=== PATIENT | male | born 1940 | race Caucasian/White ===

== ENCOUNTER 2018-10-19 00:08 | Day surgery (SDC) | payer MEDICARE ==
[~2018-10-19 00:08] MED LIST: ACET120S PO; ACET325; ACET325 PO; ACET500; ACET500 PO; ACYC200 PO; ALPR.5; ALPR.5 PO; ANALPRAM; ANALPRAM E 2.51 EAC1 PR; ANALPRAM HC 2.530 GM; ANALPRAM HC CREAM; ANALPRAM HC TOP; ASCO500; ASCO500 PO; ATOR10 PO; AZIT250 PO; Acerola C500 MG PO; BIMA.03OPS OD; CELE200; CHOL10002 PO; CIPR500 PO; CLON.5; CLON.5 PO; CLON1; CLON1 PO; CYAN1000 PO; Colace250 MG PO; DOC250 PO; DOCU100 PO; ENOX80I SC; ERGO400 PO; ERYT.5TO; ERYT.5TO BOTHEYES; ERYT.5TO OD; FENT25TP TOP; FENTANYL1 EAC1 TD; FISH1000 PO; FLUC100 PO; GEMF600; GEMF600 PO; HYDR1TAB94 PO; Hair, Skin & N1 EACH PO; Keflex250 MG PO; LATA.005SO BOTHEYES; LAVAP17G PO; LEVO750 PO; LISI10; LISI5 PO; LUMIGAN2.5 ML; LUMIGAN2.5 ML BOTHEYES; METR500 PO; MULVITMIND; MULVITMIND PO; MULVITMINF; MULVITMINF PO; Multi-Day Vita1 EACH PO; OMEP20ER; ONDA8 PO; PANT40 PO; PSYL5.85P; PSYL5.85P PO; RABE20 PO; RANI150; SACC250C PO; SULTRIDS PO; TIMO.5OPG; TIMO.5OPG BOTHEYES; TIMO.5OPSO; TIMO.5OPSO BOTHEYES; TIMO.5OPSO OD; TIMO.5OPSO OU; TRAM50; TRAM50 PO; VITAMIN B-122000 MCG PO; WARF1 PO; WARF3 PO; WARF6; WARF6 PO; WARF7.5 PO
== END 2018-10-19 15:58 | disposition home or self-care (01) ==
LOC: ATC 00:08
DX: D46.9 Myelodysplastic syndrome, unspecified (principal); Z79.01 Long term (current) use of anticoagulants; Z95.2 Presence of prosthetic heart valve; Z87.891 Personal history of nicotine dependence; H40.9 Unspecified glaucoma; F41.8 Other specified anxiety disorders; I10 Essential (primary) hypertension; Z95.0 Presence of cardiac pacemaker; K57.92 Diverticulitis of intestine, part unspecified, without perforation or abscess without bleeding; F43.10 Post-traumatic stress disorder, unspecified; Z79.899 Other long term (current) drug therapy
CPT/HCPCS: 36415; 36430; 86850; 86900; 86901; 86923; J7050; P9016

== ENCOUNTER 2018-12-07 07:41 | Day surgery (SDC) | payer MEDICARE ==
[2018-12-06 13:44] LABS: Hematocrit 23.5 % (37.0-53.0); Hemoglobin 7.3 g/dL (13.5-17.5); Mean Corpuscular HGB 33.8 pg (26.0-34.0); Mean Corpuscular HGB Conc 31.1 g/dL (31.5-36.5); Mean Corpuscular Volume 109 fL (80-100); Mean Platelet Volume 9.8 fL (9.1-12.4); Platelet Count 190 K/mm3 (150-400); RDW Coefficient Variation 17.4 % (11.7-14.2); RDW Standard Deviation 68.7 fL (35.1-46.3); Red Blood Cell Count 2.16 M/mm3 (4.30-5.90); White Blood Cell Count 2.76 K/mm3 (4.00-11.30)
[2018-12-06 14:58] LABS: BAND PERCENT MAN 1 % (0-8); BASOPHILS ABSOLUTE MAN 0.02 K/mm3 (0.00-0.23); BASOPHILS PERCENT MAN 1 % (0-2); EOSINOPHILS ABSOLUTE MAN 0.05 K/mm3 (0.00-0.68); EOSINOPHILS PERCENT MAN 2 % (0-6); LYMPHOCYTES ABSOLUTE MAN 1.43 K/mm3 (0.84-5.20); LYMPHOCYTES PERCENT MAN 52 % (21-46); MONOCYTES ABSOLUTE MAN 0.41 K/mm3 (0.16-1.47); MONOCYTES PERCENT MAN 15 % (4-13); NEUTROPHILS ABSOLUTE MAN 0.82 K/mm3 (1.96-9.15); SEG NEUTROPHILS PERCENT MAN 29 % (41-73); TOTAL CELLS COUNTED 100
[2018-12-07] MEDS ORDERED: TRAM50 PO (15:22)
[2018-12-07] MEDS ORDERED: CELE200 PO (15:23)
[2018-12-07] MEDS ORDERED: GABA600 PO (15:26)
--- NOTE | 2018-12-07 16:02 | NUR ---
PT STATES HE FEELS LIGHT HEADED OR FUZZY. PT RESTING IN CHAIR WATCHING TV. IN ROOM, WILL CONTINUE TO MONITOR.
--- NOTE | 2018-12-07 17:13 | NUR ---
PT STATES HE FEELS BETTER. ASSISTED PT TO STANDING WITH NO C/O. PT DISCHARGED TO CARE OF .
== END 2018-12-07 17:02 | disposition home or self-care (01) ==
LOC: ATC 07:41 → LAB 07:41 → ATC 17:02
PROVIDERS: Internal Medicine Hematology & Oncology
DX: D46.9 Myelodysplastic syndrome, unspecified (principal); I10 Essential (primary) hypertension; F41.9 Anxiety disorder, unspecified; F32.9 Major depressive disorder, single episode, unspecified; Z87.891 Personal history of nicotine dependence; Z79.899 Other long term (current) drug therapy; Z79.01 Long term (current) use of anticoagulants; Z79.02 Long term (current) use of antithrombotics/antiplatelets
CPT/HCPCS: 36415; 36430; 85025; 86850; 86900; 86901; 86923; J7050; P9016

== ENCOUNTER 2019-02-25 19:24 | Inpatient (IN) | payer MEDICARE ==
[~2019-02-25] VITALS: Ht 190.5 cm; Wt 96.8 kg
[~2019-02-25 19:24] MED LIST changes: -ANALPRAM HC TOP; -ATOR10 PO; -Colace250 MG PO; -Multi-Day Vita1 EACH PO
[2019-02-25 20:08] LABS: Hematocrit 22.7 % (37.0-53.0); Hemoglobin 7.2 g/dL (13.5-17.5); Mean Corpuscular HGB 32.6 pg (26.0-34.0); Mean Corpuscular HGB Conc 31.7 g/dL (31.5-36.5); Mean Platelet Volume 10.3 fL (9.1-12.4); NRBC ABSOLUTE 0.11 K/mm3 (0.00-0.02); NRBC Auto 2.7 /100 WBC (0.0-0.2); Platelet Count 182 K/mm3 (150-400); RDW Coefficient Variation 21.5 % (11.7-14.2); RDW Standard Deviation 78.2 fL (35.1-46.3); Red Blood Cell Count 2.21 M/mm3 (4.30-5.90); White Blood Cell Count 4.13 K/mm3 (4.00-11.30)
[2019-02-25 20:09] LABS: Mean Corpuscular Volume 103 fL (80-100)
[2019-02-25 20:22] LABS: International Normalized Ratio 2.97; Prothrombin Time Results 28.5 Sec (9.7-11.5)
[2019-02-25 20:30] LABS: Alanine Aminotransfer (ALT/SGP 29 U/L (12-78); Albumin, Blood 3.5 g/dL (3.4-5.0); Albumin/Globulin Ratio 0.8 (0.8-1.8); Alk Phos 88 U/L (50-136); Anion Gap 5 mmol/L (6-16); Aspartate Aminotrans (AST/SGOT 26 U/L (12-37); Bilirubin, Total 2.9 mg/dL (0.1-1.0); Blood Urea Nitrogen 20 mg/dL (8-24); Bun/Creatinine Ratio 19.4 (12.0-20.0); CO2, Blood 25 mmol/L (21-32); Calcium, Blood 8.7 mg/dL (8.5-10.1); Chloride, Blood 107 mmol/L (98-108); Creatinine, Blood 1.03 mg/dL (0.60-1.20); Globulin, Blood 4.2 g/dL (2.2-4.0); Glomerular Filtration Rate >60 (60-); Glucose, Blood 200 mg/dL (70-99); Sodium, Blood 137 mmol/L (136-145); Total Protein, Blood 7.7 g/dL (6.4-8.2)
[2019-02-25 20:44] LABS: BASOPHILS ABSOLUTE MAN 0.08 K/mm3 (0.00-0.23); BASOPHILS PERCENT MAN 2 % (0-2); EOSINOPHILS PERCENT MAN 0 % (0-6); LYMPHOCYTES ABSOLUTE MAN 1.89 K/mm3 (0.84-5.20); LYMPHOCYTES PERCENT MAN 46 % (21-46); MONOCYTES ABSOLUTE MAN 0.45 K/mm3 (0.16-1.47); MONOCYTES PERCENT MAN 11 % (4-13); NEUTROPHILS ABSOLUTE MAN 1.69 K/mm3 (1.96-9.15); SEG NEUTROPHILS PERCENT MAN 41 % (41-73); TOTAL CELLS COUNTED 100
[2019-02-25] MEDS ORDERED: PANT40 PO (21:37)
[2019-02-25] MEDS ORDERED: TIMO.5OPSO BOTHEYES (21:38)
[2019-02-25] MEDS ORDERED: ATOR10 PO (21:38)
[2019-02-25] MEDS ORDERED: LATA.005SO BOTHEYES (21:38)
[2019-02-25] MEDS ORDERED: GABA600 PO (21:39)
[2019-02-25] MEDS ORDERED: CLON1 PO (21:40)
[2019-02-25] MEDS ORDERED: CELE200 PO (21:41)
[2019-02-25] MEDS ORDERED: WARF5 PO (21:42)
[2019-02-25] MEDS ORDERED: TRAM50 PO (22:00)
[2019-02-25] MEDS ORDERED: ACET500 PO (22:02)
[2019-02-25] MEDS ORDERED: ASCO500 PO (22:02)
[2019-02-25] MEDS ORDERED: THERA1 EACH PO (22:03)
[2019-02-25] MEDS ORDERED: CHOL10002 PO (22:05)
[2019-02-25] MEDS ORDERED: METAMUCIL660 GM PO (22:05)
[2019-02-25] MEDS ORDERED: Colace250 MG PO (22:05)
[2019-02-25] MEDS ORDERED: Erythromycin BOTHEYES (22:08)
[2019-02-25] MEDS ORDERED: LISI5 PO (22:09)
[2019-02-25] MEDS ORDERED: ANALPRAM HC 2.5%4 GM TOP (22:09)
--- NOTE | 2019-02-26 06:25 | NUR ---
SHIFT SUMMARY PT WAS A NEW ADMIT DURING THE NIGHT, ARRIVING ON THE FLOOR AT 2240. HE IS A&O X 2, THOUGH VERY SPACEY AND "OUT OF IT" PER IS , WHICH IS NOT HIS NORMAL BASELINE. THE PT REPORTED FEELING VERY SHORT OF BREATH DURING THE NIGHT, THOUGH IS SATS REMAINED AT 95-97% ON 3L OF O2 VIA NC. HE ALSO HAD A TEMPERATURE OF 100.8 DURING AM VITALS, WHICH CAME DOWN TO 99.7 WITH PO TYLENOL. HIS HEART RATE WAS ELEVATED IN THE 110S THROUGH THE NIGHT. ALL OTHER VITALS STABLE. HE REPORTED CHRONIC R SIDE/CHEST PAIN, WHICH PER THE PT IS NOT WELL CONTROLLED ON HIS HOME DOSE OF TRAMADOL AND GABAPENTIN. NO COMPLAINTS OF NAUSEA. NO OTHER ACUTE CHANGES IN PT CONDITION NOTED. WILL CONTINUE TO MONITOR AND TREAT PER EMAR UNTIL HAND OFF TO DAY SHIFT.
[2019-02-26 09:32] LABS: International Normalized Ratio 3.29; Prothrombin Time Results 31.3 Sec (9.7-11.5)
[2019-02-26 12:10] LABS: Hematocrit 19.1 % (37.0-53.0); Mean Corpuscular HGB 32.3 pg (26.0-34.0); Mean Corpuscular HGB Conc 31.4 g/dL (31.5-36.5); Mean Corpuscular Volume 103 fL (80-100); Mean Platelet Volume 10.8 fL (9.1-12.4); NRBC ABSOLUTE 0.12 K/mm3 (0.00-0.02); NRBC Auto 2.8 /100 WBC (0.0-0.2); Platelet Count 151 K/mm3 (150-400); RDW Coefficient Variation 21.6 % (11.7-14.2); RDW Standard Deviation 78.8 fL (35.1-46.3); Red Blood Cell Count 1.86 M/mm3 (4.30-5.90); White Blood Cell Count 4.26 K/mm3 (4.00-11.30)
[2019-02-26 12:28] LABS: Albumin, Blood 3.1 g/dL (3.4-5.0); Albumin/Globulin Ratio 0.8 (0.8-1.8); Bilirubin, Total 1.5 mg/dL (0.1-1.0); Bun/Creatinine Ratio 19.1 (12.0-20.0); Creatinine, Blood 1.31 mg/dL (0.60-1.20); Globulin, Blood 3.8 g/dL (2.2-4.0); Total Protein, Blood 6.9 g/dL (6.4-8.2)
[2019-02-26 12:43] LABS: BASOPHILS PERCENT MAN 0 % (0-2); EOSINOPHILS PERCENT MAN 0 % (0-6); LYMPHOCYTES ABSOLUTE MAN 1.95 K/mm3 (0.84-5.20); LYMPHOCYTES PERCENT MAN 46 % (21-46); METAMYELOCYTE ABSOLUTE MAN 0.12 K/mm3 (0.00-0.00); METAMYELOCYTE PERCENT MAN 3 % (0-0); MONOCYTES ABSOLUTE MAN 1.06 K/mm3 (0.16-1.47); MONOCYTES PERCENT MAN 25 % (4-13); SEG NEUTROPHILS PERCENT MAN 26 % (41-73); TOTAL CELLS COUNTED 100
--- NOTE | 2019-02-26 15:13 | NUR ---
DR AMEZCUA NOTIFIED OF HGB OF 6.0. DR AMEZCUA REPORTS SHE WILL LOOK THROUGH PATIENTS CHART AND PLACE ORDERS IF NEEDED.
--- NOTE | 2019-02-26 16:46 | NUR ---
PT IS A/OX3, PLEASANT AND COOPERATIVE, THE PT IS UP WITH ASSIST TO THE BATHROOM, THE PT APPEARS TO BE BREATHING EASILY ON O2 @ 3L/MIN AT THIS TIME, THE PT HAS BEEN BED REST T/O THE DAY, PTS HGB 6.0, PT IS AT THE BEDSIDE, ORDER TO TRANSFUSE 1 UNIT OF BLOOD WAS ENTERED, CALL LIGHT IN REACH WILL CONTINUE TO MONITOR AND ASSESS FOR CHANGES
--- NOTE | 2019-02-26 18:40 | NUR ---
STARTED UNIT OF PRBC'S PT TOLERATING WELL AT THIS TIME
[2019-02-27 05:52] LABS: Hematocrit 20.5 % (37.0-53.0); Hemoglobin 6.7 g/dL (13.5-17.5); Mean Corpuscular HGB 31.9 pg (26.0-34.0); Mean Corpuscular HGB Conc 32.7 g/dL (31.5-36.5); Mean Platelet Volume 10.5 fL (9.1-12.4); NRBC Auto 3.6 /100 WBC (0.0-0.2); Platelet Count 142 K/mm3 (150-400); RDW Standard Deviation 73.4 fL (35.1-46.3); White Blood Cell Count 2.79 K/mm3 (4.00-11.30)
[2019-02-27 05:53] LABS: Mean Corpuscular Volume 98 fL (80-100)
[2019-02-27 06:00] LABS: International Normalized Ratio 3.31; Prothrombin Time Results 31.5 Sec (9.7-11.5)
[2019-02-27 06:01] LABS: Bun/Creatinine Ratio 20.3 (12.0-20.0); Calcium, Blood 8.1 mg/dL (8.5-10.1); Creatinine, Blood 1.33 mg/dL (0.60-1.20)
--- NOTE | 2019-02-27 06:06 | NUR ---
SHIFT SUMMARY PATIENT IS ALERT AND ORIENTED. ON 1L NASAL CANNULA. PATIENT RECIEVED 1 UNIT OF BLOOD. PT HAS HAD A LOW GRADE FEVER THROUGHOUT THE NIGHT. ALTERNATING BETWEEN TYLENOL AND IBUPROFEN PER DR. AMEZCUA. PATIENTS HBG THIS AM IS 6.7, CALLED DR. AMEZCUA AND NOTIFIED HER OF THE HGB AND CURRENT TEMP. NO NEW ORDERS AT THIS TIME. PATIENT SLEPT OFF AND ON THROUGHOUT THE NIGHT. NO OTHER CHANGES NOTED. VITALS STABLE.
[2019-02-27 06:20] LABS: BAND PERCENT MAN 1 % (0-8); BASOPHILS ABSOLUTE MAN 0.02 K/mm3 (0.00-0.23); BASOPHILS PERCENT MAN 1 % (0-2); EOSINOPHILS PERCENT MAN 0 % (0-6); LYMPHOCYTES ABSOLUTE MAN 0.94 K/mm3 (0.84-5.20); LYMPHOCYTES PERCENT MAN 34 % (21-46); MONOCYTES ABSOLUTE MAN 0.89 K/mm3 (0.16-1.47); MONOCYTES PERCENT MAN 32 % (4-13); MYELOCYTE ABSOLUTE MAN 0.05 K/mm3 (0.00-0.00); MYELOCYTE PERCENT MAN 2 % (0-0); NEUTROPHILS ABSOLUTE MAN 0.86 K/mm3 (1.96-9.15); SEG NEUTROPHILS PERCENT MAN 30 % (41-73); TOTAL CELLS COUNTED 100
--- NOTE | 2019-02-27 11:30 | NUR ---
TRANSFUSION STARTED 1 UNIT PRBC'S, VS WNL, PT TOLERATING WELL AT THIS TIME
--- NOTE | 2019-02-27 17:56 | NUR ---
PT IS A/OX3, PLEASANT AND COOPERATIVE, THE PT APPEARS TO BE BREATHING EASILY ON O2 @ 1L/MIN AT THIS TIME, THE PT WAS TRIED ON RA FOR SEVERAL HOURS HOWEVER HIS O2 SATS DROPPED TO 88% and o2 was reapplied at 1L/min, the pt was up to shower today and back to bed per his request, he declined to ambulate in the covarrubias this evening, 1 unit of blood was administered and the pt tolerated the transfusion well, the pts was at the bedside t/o the day, call light in reach will continue to monitor and assess for changes
[2019-02-27 20:01] LABS: Hematocrit 23.3 % (37.0-53.0); Hemoglobin 7.5 g/dL (13.5-17.5)
--- NOTE | 2019-02-27 21:55 | NUR ---
MANUEL ACE ALERTED OF TRENDING UPWARD HGB/HCT NOW 7.5/23.3 (PREVIOUSLY 6.7/20.5) POST TRANSFUSION OF 1UNIT PRBC'S RECIEVED ON DAY SHIFT. NO NEW ORDERS RECEIVED AT THIS TIME.
--- NOTE | 2019-02-28 03:36 | NUR ---
SUMMARY: PT A/OX3, SPECIFIES NEEDS AND CALLS APPROPRIATELY. HE CONT'S TO GET SOB W/EXERTION BUT RECOVERS AT REST. SPO2 WNL ON 1L O2 VIA NC, RESPS E/U. HE USES URINAL IN BED BUT IS SBA OOB OTHERWISE. PT DENIED NEEDING PRN MEDS THIS SHIFT. HGB/HCT WERE IMPROVED TONIGHT FOLLOWING TRANSFUSION RECIEVED ON DAY SHIFT. VSS/AFEBRILE AND PT HAS BEEN W/O A FEVER SINCE 1120 ON 02/27/19 SO D/C MAY BE POSSIBLE TODAY. NO ACUTE CHANGES. WCTM AND REPORT TO DAY RN.
[2019-02-28 04:43] LABS: Hematocrit 24.6 % (37.0-53.0); Hemoglobin 7.8 g/dL (13.5-17.5); Mean Corpuscular HGB 31.8 pg (26.0-34.0); Mean Corpuscular HGB Conc 31.7 g/dL (31.5-36.5); Mean Corpuscular Volume 100 fL (80-100); Mean Platelet Volume 10.5 fL (9.1-12.4); NRBC ABSOLUTE 0.07 K/mm3 (0.00-0.02); NRBC Auto 3.4 /100 WBC (0.0-0.2); Platelet Count 133 K/mm3 (150-400); RDW Coefficient Variation 20.6 % (11.7-14.2); RDW Standard Deviation 72.6 fL (35.1-46.3); Red Blood Cell Count 2.45 M/mm3 (4.30-5.90); White Blood Cell Count 2.06 K/mm3 (4.00-11.30)
[2019-02-28 04:55] LABS: International Normalized Ratio 2.63; Prothrombin Time Results 25.5 Sec (9.7-11.5)
[2019-02-28 04:57] LABS: Anion Gap 5 mmol/L (6-16); Blood Urea Nitrogen 26 mg/dL (8-24); Bun/Creatinine Ratio 22.8 (12.0-20.0); CO2, Blood 25 mmol/L (21-32); Calcium, Blood 8.1 mg/dL (8.5-10.1); Chloride, Blood 108 mmol/L (98-108); Creatinine, Blood 1.14 mg/dL (0.60-1.20); Glomerular Filtration Rate >60 (60-); Glucose, Blood 130 mg/dL (70-99); Potassium, Blood 4.3 mmol/L (3.5-5.5); Sodium, Blood 138 mmol/L (136-145)
[2019-02-28 05:03] LABS: BAND PERCENT MAN 4 % (0-8); BASOPHILS ABSOLUTE MAN 0.04 K/mm3 (0.00-0.23); BASOPHILS PERCENT MAN 2 % (0-2); EOSINOPHILS PERCENT MAN 5 % (0-6); LYMPHOCYTES ABSOLUTE MAN 0.82 K/mm3 (0.84-5.20); LYMPHOCYTES PERCENT MAN 40 % (21-46); MONOCYTES ABSOLUTE MAN 0.26 K/mm3 (0.16-1.47); MONOCYTES PERCENT MAN 13 % (4-13); NEUTROPHILS ABSOLUTE MAN 0.82 K/mm3 (1.96-9.15); SEG NEUTROPHILS PERCENT MAN 36 % (41-73); TOTAL CELLS COUNTED 100
--- NOTE | 2019-02-28 08:54 | NUR ---
Echocardiogram completed.
--- NOTE | 2019-02-28 17:21 | NUR ---
SHIFT SUMMARY PT SLEEPING, RESTING QUIETLY DURING SHIFT REPORT. WOKE EASILY FOR CARE. PT'S IN TO SEE PT EARLY, BRINGING PT BREAKFAST. PT DECLINED MOST OF HOSPITAL FOOD, BUT ATE PACKAGED BROUGHT IN. PT WAS OFFERED ASSISTANCE TO FILL OUT MENU FOR LUNCH BUT REFUSED; JUST COMPLAINED ABOUT WHAT WAS BROUGHT. PT OOB TO BTHRM USING FWW; 1P ASSIST. ADMITTED FOR CAP WITH HX OF MYELODYSPLASTIC SYNDROME, CHF, PACER AND AORITIC VALVE. PT DOWN TO IMAGING RIGHT AFTER START OF SHIFT FOR CXR. PT LATER HAD ECHO IN RM. 1 UNIT PRBC'S GIVEN TODAY WELL; CHRONIC LOW ANEMIA. PT C/O NOT HAVING BM FOR A COUPLE OF DAYS, "BUT I HAVEN'T EATEN THAT MUCH EITHER"; PRUNE JUICE GIVEN WITH NO EFFECT. DR FERRELL IN TO SEE PT TONIGHT. NEW ORDERS FOR BOWEL CARE TO BE GIVEN. ABD SLIGHTLY DISTENDED. LUNGS T/O WITH SCATTERED WHEEZES. PT ON .5L O2 AT START OF SHIFT. ABLE TO TOLERATE RA WHEN UP TO BTHRM AND LATER IN BED. PER PT HE DOES NOT USE O2 AT HOME. PT VERY ITTITABLE AT TIMES. MEDICATED FOR C/O PAIN THIS AM; R RIBS. REPORTED PULLED MUSCLES YEARS AGO; NOTHING RECENT. CALL LT IN REACH.
--- NOTE | 2019-03-01 04:47 | NUR ---
SUMMARY: A/O, SPECIFIES NEEDS AND HAS BEEN USING URINAL INDEPENDENTLY WHILE IN BED. HE STILL BECOMES SOB W/EXERTION BUT HAS TOLERATED RA W/RESPS E/U. HE ADMITS TO BEING "TIRED OF BEING IN HOSPITAL" AND SAID HE'S "SORRY IF HE'S BEEN IRRITABLE". PT HAS BEEN W/O FEVERS FOR >24HRS SO D/C IS POSSIBLE TODAY. HE RECIEVED TRAMADOL X2 DOSES FOR RELIEF OF R.SIDE/RIB PAIN AND DENIED COMPLAINTS OTHERWISE. HE HAD A LARGE HARD BM THIS SHIFT FOLLOWING BOWEL MEDS RECIEVED ON DAY SHIFT. CHRONIC ANEMIA RELATED TO MYELODYSPLASTIC SYNDROME PERSISTS, AWAITING AM LABS. NO ACUTE CHANGES, VSS/AFEBRILE. WCTM AND REPORT TO DAY RN.
[2019-03-01 05:30] LABS: International Normalized Ratio 2.07; Prothrombin Time Results 20.5 Sec (9.7-11.5)
[2019-03-01 05:39] LABS: BASOPHILS ABSOLUTE AUTO 0.03 K/mm3 (0.00-0.23); BASOPHILS PERCENT AUTO 2 % (0-2); EOSINOPHILS ABSOLUTE AUTO 0.03 K/mm3 (0.00-0.68); EOSINOPHILS PERCENT AUTO 2 % (0-6); Hematocrit 26.4 % (37.0-53.0); Hemoglobin 8.4 g/dL (13.5-17.5); IMMATURE GRAN ABSOLUTE AUTO 0.02 K/mm3 (0.00-0.10); IMMATURE GRAN PERCENT AUTO 1 % (0-1); LYMPHOCYTES ABSOLUTE AUTO 0.87 K/mm3 (0.84-5.20); LYMPHOCYTES PERCENT AUTO 51 % (21-46); MONOCYTES ABSOLUTE AUTO 0.38 K/mm3 (0.16-1.47); MONOCYTES PERCENT AUTO 22 % (4-13); Mean Corpuscular HGB 31.3 pg (26.0-34.0); Mean Corpuscular HGB Conc 31.8 g/dL (31.5-36.5); Mean Corpuscular Volume 99 fL (80-100); Mean Platelet Volume 10.8 fL (9.1-12.4); NEUTROPHILS ABSOLUTE AUTO 0.37 K/mm3 (1.96-9.15); NEUTROPHILS PERCENT AUTO 22 % (41-73); NRBC ABSOLUTE 0.07 K/mm3 (0.00-0.02); NRBC Auto 4.1 /100 WBC (0.0-0.2); Platelet Count 131 K/mm3 (150-400); RDW Coefficient Variation 19.9 % (11.7-14.2); RDW Standard Deviation 69.9 fL (35.1-46.3); Red Blood Cell Count 2.68 M/mm3 (4.30-5.90)
--- NOTE | 2019-03-01 05:47 | NUR ---
HGB/HCT IMPROVING, NOW 8.4/26.4, WAS 7.9/26.4.
[2019-03-01 05:50] LABS: Anion Gap 7 mmol/L (6-16); Blood Urea Nitrogen 19 mg/dL (8-24); Bun/Creatinine Ratio 19.7 (12.0-20.0); CO2, Blood 22 mmol/L (21-32); Calcium, Blood 8.3 mg/dL (8.5-10.1); Chloride, Blood 109 mmol/L (98-108); Creatinine, Blood 0.97 mg/dL (0.60-1.20); Glomerular Filtration Rate >60 (60-); Glucose, Blood 122 mg/dL (70-99); Potassium, Blood 4.1 mmol/L (3.5-5.5); Sodium, Blood 138 mmol/L (136-145)
[2019-03-01] MEDS ORDERED: AZIT500 PO (08:22)
[2019-03-01] MEDS ORDERED: CEFP200 PO (08:23)
--- NOTE | 2019-03-01 12:52 | NUR ---
SHIFT SUMMARY PT AWAKE, WATCHING TV, DURING SHIFT REPORT. D/C ORDERS ON CHART. PT TO RECEIVE IV ABX PRIOR TO D/C. PHARMACY NOTIFIED OF DR FERRELL'S ORDERS; ABX SENT AND ADMINISTERED. PT ABLE TO GET UP P/T TODAY AND WALKED HALLS, WHILE WAITING FOR PHARMACY TO SEND ABX. LUNGS T/O IMPROVED TODAY; ONLY FINE SCATTERED EXP WHEEZES. PT'S BIOX REMAINED WNL'S ON RA, WELL REMAINING AFEBRILE. MOOD IMPROVED TODAY FROM THE START OF SHIFT. PT SEEMED ENCOURAGED TO BE ABLE TO GO HOME. NO C/O PAIN TODAY. IV D/C'D WNL WHEN ABX COMPLETE. D/C INSTRUCTIONS REVIEWED WITH PT AND AGAIN WITH . PT TO F/U WITH DR FERRELL ON AND OBTAIN INR PRIOR TO VISIT. PT AND VERBALIZED UNDERSTANDING. PT TAKEN VIA W/C TO CAR; WAITING.
== END 2019-03-01 12:49 | disposition home health service (06) | DRG 871 ==
LOC: ER 19:24 → MEDS 19:25 → ENPENDDIS 03-01 08:30 → MEDS 03-01 12:49
PROVIDERS: Emergency Medicine; Internal Medicine; Pharmacist; ADMIT Family Medicine
PROC: 30233N1 Transfusion of Nonautologous Red Blood Cells into Peripheral Vein, Percutaneous Approach (ICD-10-PCS; principal; 2019-02-26)
DX: A41.9 Sepsis, unspecified organism (principal); J18.9 Pneumonia, unspecified organism; I50.40 Unspecified combined systolic (congestive) and diastolic (congestive) heart failure; Z79.01 Long term (current) use of anticoagulants; H40.9 Unspecified glaucoma; Z90.81 Acquired absence of spleen; Z95.2 Presence of prosthetic heart valve; Z95.0 Presence of cardiac pacemaker; F41.9 Anxiety disorder, unspecified; R07.89 Other chest pain; G89.29 Other chronic pain; I11.0 Hypertensive heart disease with heart failure; D63.8 Anemia in other chronic diseases classified elsewhere; D46.9 Myelodysplastic syndrome, unspecified; Z87.891 Personal history of nicotine dependence; R09.02 Hypoxemia
CPT/HCPCS: 36415; 36430; 71045; 71046; 80048; 80053; 83605; 85007; 85014; 85018; 85025; 85027; 85610; 85730; 86850; 86900; 86901; 86923; 87040; 93306; 94762; 96365; 96367; 97116; 97162; 97530; 99285-25; A9270; G0378; J0456; J0696; J7030; J7050; P9016

== ENCOUNTER → 2019-03-08 | Outpatient (CLI) | payer MEDICARE ==
[~2019-03-08] MED LIST changes: +ANALPRAM HC 2.5%4 GM TOP; +ATOR10 PO; +AZIT500 PO; +CEFP200 PO; +CELE200 PO; +Colace250 MG PO; +Erythromycin BOTHEYES; +GABA600 PO; +LORCET 5-325 M1 EACH PO; +METAMUCIL660 GM PO; +THERA1 EACH PO; +WARF5 PO
== END | disposition home or self-care (01) ==
LOC: LAB SHORT 18:31 → LAB 18:31
DX: L03.90 Cellulitis, unspecified (principal)
CPT/HCPCS: 87070; 87205

== ENCOUNTER 2019-03-31 12:10 | Day surgery (SDC) | payer MEDICARE ==
[~2019-03-31 12:10] MED LIST changes: -LORCET 5-325 M1 EACH PO
== END 2019-03-31 16:20 | disposition home or self-care (01) ==
LOC: ATC 12:10
DX: D46.9 Myelodysplastic syndrome, unspecified (principal); I10 Essential (primary) hypertension; Z87.891 Personal history of nicotine dependence; Z79.899 Other long term (current) drug therapy; Z79.01 Long term (current) use of anticoagulants
CPT/HCPCS: 36430; 86850; 86900; 86901; 86923; J7050; P9016

== ENCOUNTER 2019-04-27 14:55 | Day surgery (SDC) | payer MEDICARE ==
[2019-04-25 14:41] LABS: Hematocrit 21.4 % (37.0-53.0); Hemoglobin 6.7 g/dL (13.5-17.5); Mean Corpuscular HGB 31.3 pg (26.0-34.0); Mean Corpuscular HGB Conc 31.3 g/dL (31.5-36.5); Mean Corpuscular Volume 100 fL (80-100); Mean Platelet Volume 10.7 fL (9.1-12.4); NRBC ABSOLUTE 0.04 K/mm3 (0.00-0.02); NRBC Auto 1.8 /100 WBC (0.0-0.2); Platelet Count 222 K/mm3 (150-400); RDW Coefficient Variation 19.2 % (11.7-14.2); RDW Standard Deviation 66.2 fL (35.1-46.3); Red Blood Cell Count 2.14 M/mm3 (4.30-5.90); White Blood Cell Count 2.18 K/mm3 (4.00-11.30)
[2019-04-25 15:07] LABS: BAND PERCENT MAN 2 % (0-8); BASOPHILS ABSOLUTE MAN 0.04 K/mm3 (0.00-0.23); BASOPHILS PERCENT MAN 2 % (0-2); EOSINOPHILS PERCENT MAN 0 % (0-6); LYMPHOCYTES ABSOLUTE MAN 1.56 K/mm3 (0.84-5.20); LYMPHOCYTES PERCENT MAN 72 % (21-46); MONOCYTES PERCENT MAN 14 % (4-13); NEUTROPHILS ABSOLUTE MAN 0.26 K/mm3 (1.96-9.15); SEG NEUTROPHILS PERCENT MAN 10 % (41-73); TOTAL CELLS COUNTED 100
--- NOTE | 2019-04-27 15:41 | NUR ---
1500 ARRIVED ARRIVED VIA WHEELCHAIR ACCOMPANIED BY FAMILY
[2019-04-27 15:49] LABS: Hematocrit 19.5 % (37.0-53.0); Hemoglobin 6.1 g/dL (13.5-17.5)
--- NOTE | 2019-04-27 18:04 | NUR ---
1800 transfusion first unit of blood initiated. patient and family unhappy that transfusion is taking longer than anticipated to be started. discussed with patient that as he had removed his blood band prior to admission today that his blood needed to be typed and crossed. discussed with patient that his transfusion will be completed as quickly as possible that is safe for him to receive
--- NOTE | 2019-04-27 18:27 | NUR ---
PATIENTS VISITOR TELLS ME THAT PATIENT JUST TOOK 2 TYLENOL AND A TRAMADOL THAT HE HAD IN HIS POCKET. VISITOR TELLS ME PATIENT DOES KNOW HE IS NOT TO BE TAKING OWN MEDS
--- NOTE | 2019-04-27 19:28 | NUR ---
ASSUMED CARE OF PATIENT. PT RECEIVING 1ST UNIT OF PRBC'S NO SIGNS OF TRANSFUSION REACTION. NO COMPLAINTS FROM PATIENT. NO NEEDS AT THIS TIME.
--- NOTE | 2019-04-27 20:27 | NUR ---
2ND UNIT STARTED. WILL MONITOR CLOSELY FOR REACTION. SPOUSE AT BEDSIDE.
--- NOTE | 2019-04-27 22:52 | NUR ---
2ND UNIT COMPLETED. VSS, LS CLEAR. IV DC'D CATH INTACT. PT DC'D HOME WITH SPOUSE, BELONGINGS WITH PT.
== END 2019-04-27 22:53 | disposition home or self-care (01) ==
LOC: ATC 14:55 → SURS 14:55 → ATC 22:53
PROVIDERS: Internal Medicine Hematology & Oncology; Orthopaedic Surgery
DX: D46.9 Myelodysplastic syndrome, unspecified (principal)
CPT/HCPCS: 36415; 36430; 85014; 85018; 85025; 86850; 86900; 86901; 86923; P9016

== ENCOUNTER 2019-05-04 00:03 | Day surgery (SDC) | payer MEDICARE ==
[2019-04-29 19:45] LABS: BASOPHILS ABSOLUTE AUTO 0.01 K/mm3 (0.00-0.23); BASOPHILS PERCENT AUTO 0 % (0-2); EOSINOPHILS ABSOLUTE AUTO 0.01 K/mm3 (0.00-0.68); EOSINOPHILS PERCENT AUTO 0 % (0-6); Hematocrit 22.7 % (37.0-53.0); Hemoglobin 7.3 g/dL (13.5-17.5); Mean Corpuscular HGB 30.9 pg (26.0-34.0); Mean Corpuscular HGB Conc 32.2 g/dL (31.5-36.5); Mean Platelet Volume 11.1 fL (9.1-12.4); NRBC ABSOLUTE 0.07 K/mm3 (0.00-0.02); NRBC Auto 2.4 /100 WBC (0.0-0.2); Platelet Count 201 K/mm3 (150-400); RDW Coefficient Variation 18.3 % (11.7-14.2); RDW Standard Deviation 59.7 fL (35.1-46.3); Red Blood Cell Count 2.36 M/mm3 (4.30-5.90); White Blood Cell Count 2.87 K/mm3 (4.00-11.30)
[2019-04-29 19:47] LABS: IMMATURE GRAN ABSOLUTE AUTO 0.01 K/mm3 (0.00-0.10); IMMATURE GRAN PERCENT AUTO 0 % (0-1); LYMPHOCYTES ABSOLUTE AUTO 1.36 K/mm3 (0.84-5.20); LYMPHOCYTES PERCENT AUTO 47 % (21-46); MONOCYTES ABSOLUTE AUTO 0.95 K/mm3 (0.16-1.47); MONOCYTES PERCENT AUTO 33 % (4-13); Mean Corpuscular Volume 96 fL (80-100); NEUTROPHILS ABSOLUTE AUTO 0.53 K/mm3 (1.96-9.15); NEUTROPHILS PERCENT AUTO 19 % (41-73)
== END 2019-05-04 17:14 | disposition home or self-care (01) ==
LOC: ATC 00:03
PROVIDERS: Internal Medicine Hematology & Oncology
DX: D46.9 Myelodysplastic syndrome, unspecified (principal); I10 Essential (primary) hypertension; F41.9 Anxiety disorder, unspecified; F32.9 Major depressive disorder, single episode, unspecified; Z87.891 Personal history of nicotine dependence; Z79.899 Other long term (current) drug therapy; Z79.01 Long term (current) use of anticoagulants
CPT/HCPCS: 36415; 36430; 85025; 86850; 86900; 86901; 86923; J7050; P9016

== ENCOUNTER 2019-05-24 10:00 | Day surgery (SDC) | payer MEDICARE ==
[2019-05-23 15:34] LABS: Hematocrit 24.9 % (37.0-53.0); Mean Corpuscular HGB 30.8 pg (26.0-34.0); Mean Corpuscular HGB Conc 32.1 g/dL (31.5-36.5); Mean Corpuscular Volume 96 fL (80-100); NRBC ABSOLUTE 0.02 K/mm3 (0.00-0.02); NRBC Auto 0.7 /100 WBC (0.0-0.2); Platelet Count 240 K/mm3 (150-400); RDW Standard Deviation 57.2 fL (35.1-46.3); White Blood Cell Count 2.97 K/mm3 (4.00-11.30)
[2019-05-23 16:42] LABS: BASOPHILS ABSOLUTE MAN 0.02 K/mm3 (0.00-0.23); BASOPHILS PERCENT MAN 1 % (0-2); EOSINOPHILS PERCENT MAN 0 % (0-6); LYMPHOCYTES ABSOLUTE MAN 1.84 K/mm3 (0.84-5.20); LYMPHOCYTES PERCENT MAN 62 % (21-46); MONOCYTES ABSOLUTE MAN 0.59 K/mm3 (0.16-1.47); MONOCYTES PERCENT MAN 20 % (4-13); SEG NEUTROPHILS PERCENT MAN 17 % (41-73); TOTAL CELLS COUNTED 100
[2019-05-24] MEDS ORDERED: LORCET 5-325 M1 EACH PO (14:05)
== END 2019-05-24 15:39 | disposition home or self-care (01) ==
LOC: ATC 10:00 → EDSTATUS 10:01 → ATC 15:39
PROVIDERS: Internal Medicine Hematology & Oncology
PROC: 30243N1 Transfusion of Nonautologous Red Blood Cells into Central Vein, Percutaneous Approach (ICD-10-PCS; principal; 2019-05-24)
DX: D46.9 Myelodysplastic syndrome, unspecified (principal); F41.8 Other specified anxiety disorders; I10 Essential (primary) hypertension; F43.10 Post-traumatic stress disorder, unspecified; Z87.891 Personal history of nicotine dependence; Z79.899 Other long term (current) drug therapy; Z95.0 Presence of cardiac pacemaker; Z79.01 Long term (current) use of anticoagulants
CPT/HCPCS: 36415; 36430; 85025; 86850; 86900; 86901; 86923; J7050; P9016

== ENCOUNTER 2019-06-08 14:02 | Day surgery (SDC) | payer MEDICARE ==
[~2019-06-08 14:02] MED LIST changes: +LORCET 5-325 M1 EACH PO
[2019-06-08] MEDS ORDERED: WARF5 PO (17:40)
== END 2019-06-08 17:48 | disposition home or self-care (01) ==
LOC: ATC 14:02
PROC: 30243N1 Transfusion of Nonautologous Red Blood Cells into Central Vein, Percutaneous Approach (ICD-10-PCS; principal; 2019-06-08)
DX: D46.9 Myelodysplastic syndrome, unspecified (principal); I10 Essential (primary) hypertension; M54.16 Radiculopathy, lumbar region; F43.10 Post-traumatic stress disorder, unspecified; F41.8 Other specified anxiety disorders; Z87.891 Personal history of nicotine dependence; Z95.0 Presence of cardiac pacemaker; Z79.01 Long term (current) use of anticoagulants; Z79.899 Other long term (current) drug therapy; Z95.2 Presence of prosthetic heart valve
CPT/HCPCS: 36430; 86850; 86900; 86901; 86923; J7050; P9016

== ENCOUNTER 2019-06-13 18:50 | Inpatient (IN) | payer MEDICARE ==
[~2019-06-13] VITALS: Ht 188 cm; Wt 92.5 kg
[2019-06-13 19:53] LABS: BASOPHILS ABSOLUTE AUTO 0.04 K/mm3 (0.00-0.23); BASOPHILS PERCENT AUTO 1 % (0-2); EOSINOPHILS PERCENT AUTO 0 % (0-6); Hemoglobin 7.7 g/dL (13.5-17.5); Mean Corpuscular HGB 31.3 pg (26.0-34.0); Mean Corpuscular HGB Conc 32.1 g/dL (31.5-36.5); Mean Corpuscular Volume 98 fL (80-100); Mean Platelet Volume 10.3 fL (9.1-12.4); NRBC ABSOLUTE 0.06 K/mm3 (0.00-0.02); NRBC Auto 1.4 /100 WBC (0.0-0.2); Platelet Count 253 K/mm3 (150-400); RDW Coefficient Variation 16.9 % (11.7-14.2); RDW Standard Deviation 58.2 fL (35.1-46.3); Red Blood Cell Count 2.46 M/mm3 (4.30-5.90); White Blood Cell Count 4.23 K/mm3 (4.00-11.30)
[2019-06-13 19:54] LABS: IMMATURE GRAN ABSOLUTE AUTO 0.01 K/mm3 (0.00-0.10); IMMATURE GRAN PERCENT AUTO 0 % (0-1); LYMPHOCYTES ABSOLUTE AUTO 1.26 K/mm3 (0.84-5.20); LYMPHOCYTES PERCENT AUTO 30 % (21-46); MONOCYTES ABSOLUTE AUTO 1.98 K/mm3 (0.16-1.47); MONOCYTES PERCENT AUTO 47 % (4-13); NEUTROPHILS ABSOLUTE AUTO 0.94 K/mm3 (1.96-9.15); NEUTROPHILS PERCENT AUTO 22 % (41-73)
[2019-06-13 20:08] LABS: International Normalized Ratio 2.58; Prothrombin Time Results 25.1 Sec (9.7-11.5)
[2019-06-13 20:13] LABS: Alanine Aminotransfer (ALT/SGP 25 U/L (12-78); Albumin, Blood 3.6 g/dL (3.4-5.0); Albumin/Globulin Ratio 0.9 (0.8-1.8); Alk Phos 95 U/L (50-136); Anion Gap 6 mmol/L (6-16); Aspartate Aminotrans (AST/SGOT 17 U/L (12-37); Bilirubin, Total 1.3 mg/dL (0.1-1.0); Blood Urea Nitrogen 20 mg/dL (8-24); Bun/Creatinine Ratio 21.6 (12.0-20.0); CO2, Blood 23 mmol/L (21-32); Calcium, Blood 8.5 mg/dL (8.5-10.1); Chloride, Blood 107 mmol/L (98-108); Creatinine, Blood 0.92 mg/dL (0.60-1.20); Glomerular Filtration Rate >60 (60-); Glucose, Blood 219 mg/dL (70-99); Potassium, Blood 4.1 mmol/L (3.5-5.5); Sodium, Blood 136 mmol/L (136-145); Total Protein, Blood 7.6 g/dL (6.4-8.2)
[2019-06-13] MEDS ORDERED: HYDR1TAB94 (20:16)
[2019-06-13] MEDS ORDERED: CLON1 PO (21:29)
[2019-06-13] MEDS ORDERED: Istalol2.5 ML BOTHEYES (21:30)
[2019-06-13] MEDS ORDERED: WARF5 PO (21:31)
[2019-06-13] MEDS ORDERED: TRAM50 PO ×2 (22:49→22:51)
--- NOTE | 2019-06-14 02:32 | NUR ---
spoke to Dr Harding, regarding patient request for a dose of klonazapam and also adela per his home meds. recieved orders and gave meds per emar
[2019-06-14 07:32] LABS: International Normalized Ratio 2.64; Prothrombin Time Results 25.6 Sec (9.7-11.5)
--- NOTE | 2019-06-14 17:02 | NUR ---
SHIFT SUMMARY: PT IS A/O X 4 WITH C/O HEADACHE X 2 AND REQUESTED TYLENOL BOTH TIMES. VSS. IV ABO HAVE INFUSED ORDERED WITH NO ISSUES. PT IS A X 1 ASSIST WITH FWW TO THE BATHROOM AND CALLS FOR HELP WHEN NEEDED. PT IS NOW AT THE BEDSIDE. PT IS RESTING IN BED AND C/O GENERAL MAILAISE. HE HAS HIS CALL LIGHT IN REACH.
--- NOTE | 2019-06-15 02:38 | NUR ---
PATIENT FALL AT APPROXIMATELY 0220, PT WAS FOUND DOWN ON THE FLOOR NEXT TO HIS BED. HE STATED HE WAS TRYING TO "UNPLUG THE PHONE FROM THE WALL", BUT COULDN'T REMEMBER HOW HE FELL. PT DID STATE HE FELL ON HIS R SIDE. PT WAS PUT BACK INTO BED WITH ZAHRA LIFT AND ASSESSED. TWO NEW SKIN ABRASIONS ON R ELBOW AND KNEE. NO OTHER NEW WOUNDS OR BRUISES NOTED AT THIS TIME. PT SAID THAT HE HIT HIS HEAD, AND POINTED TO THE RIGHT TOP OF HIS HEAD. NO BUMPS, BRUISES OR ABRASIONS NOTED AT THE SITE. PT HAS BEEN VERY CONFUSED SINCE HIS FALL. HE STATED THAT HE WAS "IN MY ROOM", EVEN AFTER REORIENTED TO THE HOSPITAL. VITAL SIGNS STABLE POST FALL. WILL INFORM PHYSICIAN DR FERRELL OF PT FALL. WILL CONTINUE TO MONITOR.
[2019-06-15 04:16] LABS: BASOPHILS ABSOLUTE AUTO 0.02 K/mm3 (0.00-0.23); BASOPHILS PERCENT AUTO 1 % (0-2); EOSINOPHILS PERCENT AUTO 0 % (0-6); Hematocrit 21.1 % (37.0-53.0); Hemoglobin 6.7 g/dL (13.5-17.5); Mean Corpuscular HGB 31.5 pg (26.0-34.0); Mean Corpuscular HGB Conc 31.8 g/dL (31.5-36.5); Mean Corpuscular Volume 99 fL (80-100); Mean Platelet Volume 10.6 fL (9.1-12.4); NRBC ABSOLUTE 0.09 K/mm3 (0.00-0.02); NRBC Auto 2.4 /100 WBC (0.0-0.2); Platelet Count 203 K/mm3 (150-400); RDW Coefficient Variation 17.6 % (11.7-14.2); RDW Standard Deviation 60.4 fL (35.1-46.3); Red Blood Cell Count 2.13 M/mm3 (4.30-5.90); White Blood Cell Count 3.73 K/mm3 (4.00-11.30)
[2019-06-15 04:17] LABS: IMMATURE GRAN ABSOLUTE AUTO 0.06 K/mm3 (0.00-0.10); IMMATURE GRAN PERCENT AUTO 2 % (0-1); LYMPHOCYTES ABSOLUTE AUTO 1.24 K/mm3 (0.84-5.20); LYMPHOCYTES PERCENT AUTO 33 % (21-46); MONOCYTES PERCENT AUTO 46 % (4-13); NEUTROPHILS ABSOLUTE AUTO 0.71 K/mm3 (1.96-9.15); NEUTROPHILS PERCENT AUTO 19 % (41-73)
[2019-06-15 04:35] LABS: Alanine Aminotransfer (ALT/SGP 23 U/L (12-78); Albumin, Blood 3.2 g/dL (3.4-5.0); Albumin/Globulin Ratio 0.8 (0.8-1.8); Alk Phos 91 U/L (50-136); Anion Gap 7 mmol/L (6-16); Aspartate Aminotrans (AST/SGOT 16 U/L (12-37); Bilirubin, Total 1.2 mg/dL (0.1-1.0); Blood Urea Nitrogen 20 mg/dL (8-24); Bun/Creatinine Ratio 18.3 (12.0-20.0); CO2, Blood 25 mmol/L (21-32); Calcium, Blood 8.4 mg/dL (8.5-10.1); Chloride, Blood 107 mmol/L (98-108); Creatinine, Blood 1.09 mg/dL (0.60-1.20); Glomerular Filtration Rate >60 (60-); Glucose, Blood 161 mg/dL (70-99); Sodium, Blood 139 mmol/L (136-145); Total Protein, Blood 7.2 g/dL (6.4-8.2)
--- NOTE | 2019-06-15 05:22 | NUR ---
SHIFT SUMMARY PT IS AN 79 Y/O MALE, ADMITTED FOR PNA. TH EPT WAS A&O X 3 AT THE BEGINNING OF SHIFT, THOUGH FORGETFUL. HE REPORTED CHRONIC R SIDE/CHEST PAIN DURING THE NIGHT, AND WAS MEDICATED WITH PRN HYDROCODONE AND TYLENOL. DR. FERRELL WAS CONSULTED FOR TYLENOL AFTER THE ER PHYSICIAN'S ORDER WAS DC'D, AND PT REPORTED THAT HYDROCODONE DID NOT HELP HIS PAIN. NO COMPLAINTS OF NAUSEA OR SOB. THIS AM, THE PT WAS FOUND DOWN BESIDE THE BED (SEE PREVIOUS NOTE). AFTER HIS FALL, HE WAS MORE CONFUSED, A&O X 0. HE DID REPORT HITTING HIS HEAD WHEN HE FELL. DR FERRELL WAS INFORMED, AND HE ORDERED A HEAD CT AND FURTHER LABWORK. NO OTHER ACUTE EVENTS OR CHANGES IN PT CONDITION NOTED. WILL CONTINUE TO MONITOR AND TREAT PER EMAR UNTIL HAND OFF TO DAY SHIFT RN.
--- NOTE | 2019-06-15 07:30 | NUR ---
PT PLEASANT COOP A/O. DENIES PAIN EXCEPT RT CHEST WALL. H/R REG, NO MURMER NOTED. NO TELE. PACER LUCW. LUNGS CLEAR WITH DIM UPPER RT AND CRACKLES LOW RT, ON 2L O2. RESP EASY, UNLABORED. STATES EAAK, SOB. BT X4 LAST BM UEST. VOIDS PER URINAL. 1 HEAVY ASST WITH FWW TO BATHROOM. BED IN LOW POSITION, CALL LITE IN REACH. CALLS APPROP. BED ALARM ON FOR SAFETY
[2019-06-15 08:55] LABS: International Normalized Ratio 2.17; Prothrombin Time Results 21.4 Sec (9.7-11.5)
--- NOTE | 2019-06-15 11:10 | NUR ---
PT BP DOWN TO 101/57. PT RESTING IN BED, STATES ASYMPTOMATIC. BLOOD RUNNING AT 125/HR. SPOKE TO CHARGE. CONTINUE TO MONITOR.
--- NOTE | 2019-06-15 12:09 | NUR ---
CALLED AND ADVISEED DR FERRELL OF BP LOWERING. NO NEW ORDERS.
--- NOTE | 2019-06-15 15:43 | NUR ---
Attmepted to visit in f/u this afternoon. Pt receiving personal care and Bedside commode assist. Will return again later this afternoon.
--- NOTE | 2019-06-15 17:03 | NUR ---
PT LIGHTLY SHAKEY. FEELS COLD. LIGHT TEMP REMAINS. TYLENOL GIVEN. REVIEWED WITH BOMB SQUAD COMMANDER. SALLY, NOT NEEDING STOP BLOOD OR CALL
--- NOTE | 2019-06-15 17:42 | NUR ---
Palliative care visit. Return visit to pt/ as planned earlier. Pt getting second unit of blood. He is chattering with cold and whole body shaking. He cont to have a slightly elevated temp of 99.8. Extra blanket brought to him and foot/leg rub provided with pt's permission. Assisted pt with repositioning and moving up in bed. He reports the same right sided chest wall pain and some right leg pain, ankle/foot pain due to recent fall. No rash noted. Pt's respiratory rate 38/min. He does not appear in respiratory distress otherwise, just shivering and slightly anxious with all the conversation between RN and supervisor electric about possible reaction to transfusion Pt reported that the norco given for pain earlier today, in am around 1130 helped with pain but is reporting 7/10 pain to RN again now. Requested of RN that tylenol be given for discomort and norco per eMAR if Tylenol was not effective in treating pain and chills. RN requested charge nurse assess. NARENDRA Gaspar in to assess due to transfusion. Pt and reassured. This is not a good time to continue discussion on advanced care planning due to pt's discomfort. Pt and plan to further discuss with and Trevin care tomorrow as needed. Both appreciative of the visits and time spent with them today. Will report to next Palliative Care RN for follow up tomorrow.
--- NOTE | 2019-06-15 17:58 | NUR ---
PT LIGHTLY WHEEZY. RESP 24. PT WORKING SOME TO BREATHE. BLOOD ALMOST DONE. CALLED DR FERRELL. HE TO STOP SEE PT IN FEW MIN. WILL MAKE ORDERS FOR BLOOD CULTURS, L/ACID, PROCALCITONIN. WILL SEE PT.
--- NOTE | 2019-06-15 19:18 | NUR ---
PT PLEASANT TODAY. DR FERRELL CAME TO SEE HIM THIS VIOLETA. NEW ORDERS FOR BLOOD DRAWS. DR FERRELL AND I DISCUSSED TEMPS AND BLOOD ADMIN. DR BOYLE WILL ORDER ABX BASED ON NEW LABS. PT STATES DOING OKAY. PAIN MANAGED WITH AVAIL MEDS. 2 UNITS BLOOD GIVEN TODAY. PT WAS KIDDING AND TEASING SOME TODAY ABOUT HIS JOB. BED IN LOW POSITION, CALL LITE IN REACH, CALLS APPROP BED ALARM ON FOR SAFETY
[2019-06-16 05:10] LABS: Hematocrit 26.2 % (37.0-53.0); Hemoglobin 8.4 g/dL (13.5-17.5)
[2019-06-16 05:20] LABS: International Normalized Ratio 2.23
--- NOTE | 2019-06-16 07:02 | NUR ---
0630: PT TO IMAGING VIA BED FOR CHEST XRAY; RETURNS AT 0712. CALL LIGHT IN REACH.
[2019-06-16 14:48] LABS: Adenovirus Not Detected (NOT DETECT); Bordetella pertussis Not Detected (NOT DETECT); Chlamydophila pneumoniae Not Detected (NOT DETECT); Coronavirus 229E Not Detected (NOT DETECT); Coronavirus HKU1 Not Detected (NOT DETECT); Coronavirus NL63 Not Detected (NOT DETECT); Coronavirus OC43 Not Detected (NOT DETECT); Human Metapneumovirus Not Detected (NOT DETECT); Human Rhinovirus/Enterovirus Not Detected (NOT DETECT); Influenza A Not Detected (NOT DETECT); Influenza A/2009-H1 Not Detected (NOT DETECT); Influenza A/H1 Not Detected (NOT DETECT); Influenza A/H3 Not Detected (NOT DETECT); Influenza B Not Detected (NOT DETECT); Mycoplasma pneumoniae Not Detected (NOT DETECT); Parainfluenza Virus 1 Not Detected (NOT DETECT); Parainfluenza Virus 2 Not Detected (NOT DETECT); Parainfluenza Virus 3 Not Detected (NOT DETECT); Parainfluenza Virus 4 Not Detected (NOT DETECT); Respiratory Syncytial Virus Not Detected (NOT DETECT)
--- NOTE | 2019-06-16 15:20 | NUR ---
Follow up visit: Will follow up with pt when present. Instructed by nurse that pt is able to discuss care and may be able to make choices, however, it would be better if is present. is not at bedside at this time. Will follow up at a later time. Notes reviewed.
--- NOTE | 2019-06-16 16:59 | NUR ---
Spiritual Care intial note: I mainly spoke to pt's spouse, Marisol, at bedside. Pt appeared pleasantly confused. He smiles easily, but did not engage in conversation. He says he has been "sleeping a lot." Marisol was stoic at first, but became tearful during prayer and opened up to me. She is clearly emotionally and physically exhausted. She admits there is most likely nothing more that can be done. She is reasonable and calm. They have strong, supportive adult children. Marisol tells me that "no one has really explained our options now." She will certainly benefit from a gentle conversation about prognosis and hospice. We had an easy rapport. I will remain available.
--- NOTE | 2019-06-16 19:10 | NUR ---
SHIFT SUMMARY. A&OX3, SBA TO BATHROOM, PLEASANT AND COOPERATIVE. PT REPORTED MILD PAIN TO BACK AND DENIED THE NEED FOR PAIN MEDICATION. PT WITHOUT N/V, POOR MEAL INTAKE. PT WITH IMPROVED BREATHING THIS EVENING WHEN COMPARED TO MORNING. RESP PANEL COLLECTED AND RESULTS NEGATIVE. NO ELEVATED TEMPERATURE THIS SHIFT. AT BEDSIDE INTERMITTENTLY DURING SHIFT.
--- NOTE | 2019-06-16 21:34 | NUR ---
FEVER AT START OF SHIFT PT TEMP 99.9. GAVE 650 MG TYLENOL ALONG WITH NORCO 5/325. RECHECKED TEMP ONE HOUR LATER AND TEMP AT 101.1. NOTIFIED DR FERRELL REGARDING INCREASED TEMP WITH TYLENOL ADMINISTRATION. DR FERRELL STATED TO GIVE TYLENOL AGAIN WHEN IT IS AVAILABLE, NO OTHER ORDERS GIVEN.
--- NOTE | 2019-06-17 05:01 | NUR ---
CAPTAIN WAITER/WAITRESS SUMMARY PT AAOX3 AND PLEASANT. SOME OCCASIONAL CONFUSION IS NOTED BUT PT HAS BEEN APPROPRIATE AND HAS CALLED FOR ASSISTANCE WHEN NEEDED. 1 PERSON ASSIST INTO BATHROOM, PT ALSO USES URINAL AT BEDSIDE. HIGH TEMP OF 101.[address] FERRELL NOTIFIED, SEE PREVIOUS NOTE FOR DETAILS. FEVER EVENTUALLY RESOLVED, LAST TEMP 98.5 DEGREES WITH MORNING VITALS. GAVE PT NORCO X1 FOR CHRONIC PAIN OF HIS R UPPER RIB AREA. AFTER PAIN MEDS PT WAS ABLE TO REST FOR SEVERAL HOURS. DR MALLOY IN TO SEE PT AT START OF SHIFT, RECIEVED ORDER FOR SPUTUM CULTURE. SPUTUM SAMPLE SENT TO LAB. WILL CONTINUE TO MONITOR.
[2019-06-17 05:05] LABS: International Normalized Ratio 3.42; Prothrombin Time Results 32.4 Sec (9.7-11.5)
--- NOTE | 2019-06-17 10:57 | NUR ---
SHIFT ASSESSMENT COMPLETED @ TIME OF MORNING MEDICATION ADMINISTRATION (804)
--- NOTE | 2019-06-17 12:05 | NUR ---
Echocardiogram performed.
--- NOTE | 2019-06-17 18:27 | NUR ---
SHIFT SUMMARY: PATIENT AO TO PERSON, PLACE, TIME, AND SITUATION w/STML. COOPERATIVE WITH CARE ABLE TO MAKE NEEDS KNOWN. ONE PERSON ASSIST WITH FWW. IV ABO INFUSED WITHOUT OBSERAVBLE OR REPORTED ASE. TWO IVs TO RIGHT WRIST, BOTH FLUSHING WITHOUT COMPLICATIONS. MORE PROXIMAL IV DCd BY THIS SN D/T INCREASED ERYTHEMA ABELARDO-INSERTION SITE. PATIENT REPORTING CHRONIC PAIN TO RIGHT RIBS, WHICH WAS CONTROLLED WITH POSITIONING. EXPIRATORY WHEEZE TO BILATERAL LUNGS, COURSE RIGHT LOWER LOBE. PATIENT ENCOURAGED TO DEEP BREATH AND COUGH NEEDED. O2 STABLE 2L VIA NC. CONT OF BLADDER. OOB IN CHAIR FOR MEALS. PRESENT LATER IN SHIFT.
[2019-06-18 05:07] LABS: International Normalized Ratio 3.66; Prothrombin Time Results 34.5 Sec (9.7-11.5)
--- NOTE | 2019-06-18 05:36 | NUR ---
STEWARD/STEWARDESS ECONOMY CLASS SUMMARY PT A/O X3 AT BEGINNING OF THE SHIFT. SLEPT WELL THROUGHOUT THE NIGHT. PT BECAME CONFUSED LATER IN THE SHIFT ASKING ABOUT HIS AND WHERE SHE IS. PT ALSO THOUGHT HE WAS IN A SCHOOL BUILDING. HOWEVER, PT CALLS APPROPRIATELY AND FOLLOWS COMMANDS. PT USED BATHROOM WITH WALKER AND STANDBY ASSIST. SOB ON EXERSION. ON 2L O2. NO ACUTE CHANGES. WILL CONTINUE TO MONITOR.
--- NOTE | 2019-06-18 17:24 | NUR ---
SHIFT SUMMARY PT HAS HAD NO COMPLAINTS THIS SHIFT. PT HAS BEEN SLEEPING A LOT OF THE SHIFT. PT ON ROOM AIR. RESPIRATORY REMOVED THIS EVENING. PT'S TEMPERATURE NO HIGHER THAN 100.3 THIS SHIFT. NO ACUTE CHANGES. CALL LIGHT IN REACH. WILL CONTINUE TO MONITOR AND REPORT TO ONCOMING RN.
--- NOTE | 2019-06-19 05:08 | NUR ---
BEVERAGE HOST SUMMARY PT A/O X4. SEEMED TO BE IRRITIBLE AT TIMES THIS SHIFT. PT APPEARED TO HAVE SLEPT WELL THROUGHOUT THE NIGHT, HOWEVER, WHEN ASKED, PT STATED HE "DIDN'T GET MUCH SLEEP" DUE TO PAIN. PT WAS MEDICATED FOR PAIN PER EMAR. CALLS APPROPRIATELY. NO ACUTE CHANGES. VSS, WILL CONTINUE TO MONITOR.
[2019-06-19 05:13] LABS: International Normalized Ratio 2.41; Prothrombin Time Results 23.6 Sec (9.7-11.5)
--- NOTE | 2019-06-19 17:27 | NUR ---
SHIFT SUMMARY PT HAS BEEN SLEEPING ON AND OFF THIS SHIFT. MEDICATED FOR RIGHT RIB PAIN PER EMAR. PT IS ON ROOM AIR WITH NO COMPLAINTS OF SHORTNESS OF BREATH. NO ACUTE CHANGES THIS SHIFT. PLANS FOR PT TO DISCHARGE TO HOME. CALL LIGHT IN REACH. WILL CONTINUE TO MONITOR AND REPORT TO ONCOMING RN. BED ALARM ON FOR SAFETY.
[2019-06-20 04:21] LABS: International Normalized Ratio 1.96; Prothrombin Time Results 19.5 Sec (9.7-11.5)
--- NOTE | 2019-06-20 04:22 | NUR ---
SUMMARY: PT ORIENTED TO SELF/FAMILY BUT IS FORGETFULL TO EVENT AND SURROUNDINGS W/REMINDERS PROVIDED PRN. HE OCCASIONALLY WOULD AWAKE ANXIOUS AND IRRITABLE, SETTING OFF ALARMS W/REQUESTS FOR PAIN MEDS, SOMETIMES SHORTLY AFTER HAVING ALREADY RECIEVED THEM. PT MEDICATED FOR R.RIB PAIN W/NORCO X2 DOSES, TYLENOL X1 DOSE AND LIDOCAINE PATCH WAS APPLIED. PT MOST RECENTLY REPORTED IMPROVED PAIN CONTROL. HE RECEIVED SCHDULED KLONOPIN AT HS THEN AN ADDITIONAL PRN DOSE D/T INABILITY TO REMAIN ASLEEP. PT WAS UP W/1 ASSIST TO TOILET. HE REMAINS ON RA W/CLEAR LS AND SPO2 WNL. IV ABX RECIEVED FOR PNM THEN SL AND WILL LIKELY D/C TODAY ON ORAL ABX. NO ACUTE CHANGES, VSS AND AFEBRILE. WCTM AND REPORT TO DAY RN.
[2019-06-20] MEDS ORDERED: DOC250 PO (08:23)
[2019-06-20] MEDS ORDERED: HYDR1TAB94 PO (08:24)
[2019-06-20] MEDS ORDERED: ACET325 PO (08:26)
[2019-06-20] MEDS ORDERED: ALBU90OI INH (08:27)
[2019-06-20] MEDS ORDERED: CEFD300 PO (08:28)
--- NOTE | 2019-06-20 13:29 | NUR ---
REVIEW D'C W/S.O. AWARE TO PRINCIPAL CLOUD ARCHITECT 2 RX'S AT [facility]. 'S OFFICE HAS ALREADY CALLED REGARDING F/U APPT. ANSWER ALL QUESTIONS. WILL CALL WHEN READY FOR W/C.
--- NOTE | 2019-06-21 08:55 | NUR ---
Palliative Care visit - Met with pt and just prior to discharge. Pt in bed, appears to be hurting with facial grimacing while talking to me. is busy gathering up personal belongings and getting ready to help pt get dressed for ride home. We discussed pt's wishes and the POLST again. Pt repeats frequently, "I don't know about every option posed to him. I am not certain he will be able to be clear on his wishes at this time and going forward. He appears very frail, profoundly exhausted and like he is starting to check out of the active participation of his care and decisions. I discussed with that she may need to make these decisions, based on our many conversations during this hospitalization and their previous private conversations about what he would want with end stage disease processes. The pt did say, very clearly, "I don't want to prolong ANYTHING". When trying to determine specifics of "anything" or options on the POLST he returned to saying, "I don't know". has the blank polst form and the booklet to review, "Hard Choices for Door People". THey will take the POLST and attempt to get it completed at his f/u office visit with Dr Harding in 2 weeks. 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 He continues to say the pain he is experiencing in that area is not from the mass or acute issues but from a previous surgery. He indicated to he did not want the mass biopsied because he did not feel it is a problem. I am uncertain if he is more confused, in denial or just to exhausted to contemplate more medical intervention at this time. Pt appears to be at end of life with multiple challenging comorbidities in reviewing entire EMR. I did not express this to pt/ but did discuss that if pt chooses to forgo tx of his chest wall mass and/or myelodysplasia he may meet hospice criteria and that it may be helpful for him and his to have the support of hospice for s/s management and supplementing home care. appreciative of conversation and will discuss further with Dr Harding on Thursday. Pt and are also in the process of moving from one home to another here in town this week. encouraged to rest and beef up her own self care with all that is going on for them. She verbalized understanding and agreement. Case conferenced with pt's RN after visit and discussed pain management and medications recommended that have been helpful in treating pain for pt while he was here. RN confirmed that pt does have an rx for [place] at home. None was ordered on d/c. Pt and given instructed on managing pain before it was out of control and to notify dr if his prescribed medications were not managing his pain satisfactorily.
== END 2019-06-20 13:55 | disposition home or self-care (01) | DRG 871 ==
LOC: ER 18:50 → MEDS 21:09 → ENPENDDIS 06-20 08:20 → MEDS 06-20 13:55
PROVIDERS: Physician Assistant; ADMIT Internal Medicine
PROC: 30233N1 Transfusion of Nonautologous Red Blood Cells into Peripheral Vein, Percutaneous Approach (ICD-10-PCS; principal; 2019-06-16)
DX: A41.9 Sepsis, unspecified organism (principal); J18.1 Lobar pneumonia, unspecified organism; K57.92 Diverticulitis of intestine, part unspecified, without perforation or abscess without bleeding; C79.9 Secondary malignant neoplasm of unspecified site; D70.9 Neutropenia, unspecified; R50.81 Fever presenting with conditions classified elsewhere; R91.8 Other nonspecific abnormal finding of lung field; R09.02 Hypoxemia; Z95.2 Presence of prosthetic heart valve; Z86.711 Personal history of pulmonary embolism; Z79.01 Long term (current) use of anticoagulants; F41.8 Other specified anxiety disorders; H40.9 Unspecified glaucoma; E78.5 Hyperlipidemia, unspecified; Z51.5 Encounter for palliative care
CPT/HCPCS: 0099U; 36415; 36430; 70450; 71046; 71250; 80053; 82947; 83605; 83880; 84145; 85014; 85018; 85025; 85610; 85730; 86850; 86900; 86901; 86923; 87040; 87070; 87205; 93005; 93010; 93308; 93321; 94640; 94760; 96374; 99285-25; A9270; A9270-GY; J0456; J0696; J0713; J1940; J7050; P9016

== ENCOUNTER 2019-06-30 15:00 | Emergency (ER) | payer MEDICARE ==
[~2019-06-30] VITALS: Ht 188 cm; Wt 93.0 kg
[~2019-06-30 15:00] MED LIST changes: +ALBU90OI INH; -ATOR10 PO; +ATOR40TA PO; +CEFD300 PO; +GABA300 PO; -GABA600 PO; +HYDR1TAB94; +Istalol2.5 ML BOTHEYES
[2019-06-30 16:15] LABS: Hematocrit 20.9 % (37.0-53.0); Hemoglobin 6.4 g/dL (13.5-17.5); Mean Corpuscular HGB 30.2 pg (26.0-34.0); Mean Corpuscular HGB Conc 30.6 g/dL (31.5-36.5); Mean Corpuscular Volume 99 fL (80-100); Mean Platelet Volume 11.3 fL (9.1-12.4); NRBC ABSOLUTE 0.05 K/mm3 (0.00-0.02); NRBC Auto 1.8 /100 WBC (0.0-0.2); Platelet Count 416 K/mm3 (150-400); RDW Coefficient Variation 16.6 % (11.7-14.2); RDW Standard Deviation 56.3 fL (35.1-46.3); Red Blood Cell Count 2.12 M/mm3 (4.30-5.90); White Blood Cell Count 2.85 K/mm3 (4.00-11.30)
[2019-06-30 16:38] LABS: BAND PERCENT MAN 1 % (0-8); BASOPHILS ABSOLUTE MAN 0.02 K/mm3 (0.00-0.23); BASOPHILS PERCENT MAN 1 % (0-2); EOSINOPHILS PERCENT MAN 0 % (0-6); LYMPHOCYTES % ATYPICAL MANUAL 4 % (0-0); LYMPHOCYTES ABSOLUTE MAN 1.99 K/mm3 (0.84-5.20); LYMPHOCYTES PERCENT MAN 66 % (21-46); MONOCYTES ABSOLUTE MAN 0.59 K/mm3 (0.16-1.47); MONOCYTES PERCENT MAN 21 % (4-13); NEUTROPHILS ABSOLUTE MAN 0.22 K/mm3 (1.96-9.15); SEG NEUTROPHILS PERCENT MAN 7 % (41-73); TOTAL CELLS COUNTED 100
[2019-06-30 16:44] LABS: Alanine Aminotransfer (ALT/SGP 18 U/L (12-78); Albumin, Blood 3.2 g/dL (3.4-5.0); Albumin/Globulin Ratio 0.7 (0.8-1.8); Alk Phos 130 U/L (50-136); Anion Gap 7 mmol/L (6-16); Aspartate Aminotrans (AST/SGOT 11 U/L (12-37); Bilirubin, Total 0.6 mg/dL (0.1-1.0); Blood Urea Nitrogen 23 mg/dL (8-24); CO2, Blood 26 mmol/L (21-32); Calcium, Blood 8.8 mg/dL (8.5-10.1); Chloride, Blood 110 mmol/L (98-108); Creatinine, Blood 0.96 mg/dL (0.60-1.20); Globulin, Blood 4.6 g/dL (2.2-4.0); Glomerular Filtration Rate >60 (60-); Glucose, Blood 126 mg/dL (70-99); Potassium, Blood 3.8 mmol/L (3.5-5.5); Sodium, Blood 143 mmol/L (136-145); Total Protein, Blood 7.8 g/dL (6.4-8.2)
[2019-06-30 18:04] LABS: Prothrombin Time Results 52.2 Sec (9.7-11.5)
[2019-06-30 18:07] LABS: International Normalized Ratio 5.78
[2019-06-30 22:40] LABS: Chloride (POC) 113 mmol/L (98-108); Creatinine (POC) 0.7 mg/dL (0.8-1.3); Glucose (ISTAT POC) 168 mg/dL (70-99); Hemoglobin (POC) 6.8 g/dL (13.5-17.5); Potassium (POC) 3.8 mmol/L (3.5-5.5); Sodium (POC) 145 mmol/L (135-148); Total CO2 (POC) 20 mmol/L (21-32)
== END 2019-06-30 22:59 | disposition home or self-care (01) ==
LOC: ER 15:00
PROVIDERS: Emergency Medicine; Physician Assistant
DX: D46.9 Myelodysplastic syndrome, unspecified (principal); R79.1 Abnormal coagulation profile; I11.0 Hypertensive heart disease with heart failure; I50.9 Heart failure, unspecified; F32.9 Major depressive disorder, single episode, unspecified; F41.9 Anxiety disorder, unspecified; Z87.891 Personal history of nicotine dependence; Z86.711 Personal history of pulmonary embolism; Z79.899 Other long term (current) drug therapy; Z79.01 Long term (current) use of anticoagulants
CPT/HCPCS: 36415; 36430; 71046; 80047; 80053; 82272; 84484; 85014; 85025; 85610; 86850; 86900; 86901; 86923; 93005; 93010; 99284-25; J7030; P9016

== ENCOUNTER 2019-07-27 00:05 | Day surgery (SDC) | payer MEDICARE | END 2019-07-27 17:42 | disposition home or self-care (01) | LOC: ATC 00:05 | PROC: 30243N1 Transfusion of Nonautologous Red Blood Cells into Central Vein, Percutaneous Approach (ICD-10-PCS; principal; 2019-07-27) | DX: D46.9 Myelodysplastic syndrome, unspecified (principal); D46.4 Refractory anemia, unspecified; I10 Essential (primary) hypertension; H40.9 Unspecified glaucoma; F41.9 Anxiety disorder, unspecified; F32.9 Major depressive disorder, single episode, unspecified; F43.10 Post-traumatic stress disorder, unspecified; Z79.01 Long term (current) use of anticoagulants; Z79.2 Long term (current) use of antibiotics; Z79.899 Other long term (current) drug therapy; Z87.891 Personal history of nicotine dependence; Z95.0 Presence of cardiac pacemaker; Z86.711 Personal history of pulmonary embolism; Z95.2 Presence of prosthetic heart valve | CPT/HCPCS: 36430; 86850; 86900; 86901; 86923; A9270; J7050; P9016 ==

== ENCOUNTER 2019-08-22 05:19 | Inpatient (IN) | payer MEDICARE ==
[~2019-08-22] VITALS: Ht 188 cm; Wt 93.6 kg
[2019-08-22] MEDS ORDERED: Norco 5-325 Ta1 EACH PO (05:35)
[2019-08-22] MEDS ORDERED: Effexor Xr37.5 MG PO (05:41)
[2019-08-22 05:52] LABS: BASOPHILS ABSOLUTE AUTO 0.01 K/mm3 (0.00-0.23); BASOPHILS PERCENT AUTO 0 % (0-2); EOSINOPHILS PERCENT AUTO 0 % (0-6); Mean Corpuscular HGB 27.9 pg (26.0-34.0); Mean Corpuscular HGB Conc 30.7 g/dL (31.5-36.5); Mean Corpuscular Volume 91 fL (80-100); Mean Platelet Volume 10.7 fL (9.1-12.4); NRBC ABSOLUTE 0.05 K/mm3 (0.00-0.02); NRBC Auto 1.3 /100 WBC (0.0-0.2); Platelet Count 266 K/mm3 (150-400); RDW Coefficient Variation 20.8 % (11.7-14.2); RDW Standard Deviation 61.6 fL (35.1-46.3); Red Blood Cell Count 1.97 M/mm3 (4.30-5.90)
[2019-08-22 05:54] LABS: IMMATURE GRAN ABSOLUTE AUTO 0.02 K/mm3 (0.00-0.10); IMMATURE GRAN PERCENT AUTO 1 % (0-1); LYMPHOCYTES ABSOLUTE AUTO 1.15 K/mm3 (0.84-5.20); LYMPHOCYTES PERCENT AUTO 30 % (21-46); MONOCYTES ABSOLUTE AUTO 2.09 K/mm3 (0.16-1.47); MONOCYTES PERCENT AUTO 54 % (4-13); NEUTROPHILS ABSOLUTE AUTO 0.63 K/mm3 (1.96-9.15); NEUTROPHILS PERCENT AUTO 16 % (41-73)
[2019-08-22 05:55] LABS: Hematocrit 17.9 % (37.0-53.0); Hemoglobin 5.5 g/dL (13.5-17.5)
[2019-08-22 06:05] LABS: International Normalized Ratio 3.51
[2019-08-22 06:09] LABS: Alanine Aminotransfer (ALT/SGP 44 U/L (12-78); Albumin, Blood 3.3 g/dL (3.4-5.0); Albumin/Globulin Ratio 0.8 (0.8-1.8); Alk Phos 131 U/L (50-136); Anion Gap 10 mmol/L (6-16); Aspartate Aminotrans (AST/SGOT 52 U/L (12-37); Bilirubin, Total 1.5 mg/dL (0.1-1.0); Blood Urea Nitrogen 25 mg/dL (8-24); Bun/Creatinine Ratio 24.3 (12.0-20.0); CO2, Blood 21 mmol/L (21-32); Calcium, Blood 8.5 mg/dL (8.5-10.1); Chloride, Blood 106 mmol/L (98-108); Creatinine, Blood 1.03 mg/dL (0.60-1.20); Globulin, Blood 4.3 g/dL (2.2-4.0); Glomerular Filtration Rate >60 (60-); Glucose, Blood 265 mg/dL (70-99); Potassium, Blood 4.3 mmol/L (3.5-5.5); Sodium, Blood 137 mmol/L (136-145); Total Protein, Blood 7.6 g/dL (6.4-8.2)
[2019-08-22 06:23] LABS: Troponin I 0.598 ng/mL (0.000-0.040)
--- NOTE | 2019-08-22 13:42 | NUR ---
TACHYPNEA PT COMPLAINING OF ABDOMINAL DISTENSION/BLOATING AND SOB. STATES IT STARTED WHEN HE STARTED EATING. RR WENT FROM 23 PRIOR TO BLOOD TX TO 27-[address] BUSH CALLED, SHE STATES TO CONTINUE WITH BLOOD BUT GIVE 20MG IV LASIX. DONE ORDERED, MONITORING CLOSELY
--- NOTE | 2019-08-22 14:51 | NUR ---
ON 08/22/2019 PT GAVE PERMISSION FOR THIS STUDENT NURSE TO PROVIDE CARE ON 08/23/2019.
[2019-08-22] MEDS ORDERED: MIRALAX17 GM PO (16:00)
[2019-08-22] MEDS ORDERED: HYDR1TAB94 PO (16:53)
--- NOTE | 2019-08-22 18:49 | NUR ---
LEFT MESSAGE FOR DR BUSH ASKING IF SHE WANTED REPEAT CBC POST 2 UNITS PRBC
--- NOTE | 2019-08-22 19:14 | NUR ---
SHIFT SUMMARY ADRIÁN ARRIVED FROM ER THIS MORNING AROUND 0915, PT RECEIVED 2 UNITS PRBC THIS SHIFT. BECAME SHORT OF BREATH WITH FIRST UNIT, CALLED DR BUSH (SEE OTHER NOTE), ALL OTHER VS NORMAL EXCEPT RESP RATE WAS 30. SHE ORDERED 20 MG IV LASIX WHICH HELPED. AT BEDSIDE THIS HSIFT. 3 L OXYGEN, SATS STABLE. TELE SHOWS PACED. CBG AC ORDERED DUE TO HIGH CBG IN ED, NO INSULIN OF YET. TROPONIN SOFIYA TO 3.8 ,DR BUSH AWARE, JUST MONITORING AT THIS POINT PER HER. R CHEST PAIN DUE TO MASS, ICE PACK AND TYLENOL/NORCO WAS EFFECTIVE. SBA TO BR, FORGETFUL, SO BED ALARM ON. ONE BM THIS SHIFT. TOOK MEDS PRESCRIBED. VERY POOR APPETITE, HE FEELS BLOATED. CALL LIGHT IN REach, wctm
--- NOTE | 2019-08-23 04:49 | NUR ---
SHIFT SUMMARY- PT. RESTLESS DURING THE NIGHT. STATED UNABLE TO GET COMFORTABLE AND FALL ASLEEP. PT. ALSO C/O PAIN TO THE RT SIDE OF BODY. MEDICATED PT. WITH KLONOPIN AND HIS PAIN MEDS PRN PER EMAR. PT. APPEARED TO HAVE GOOD RELIEF. SLEPT THE REST OF THE SHIFT. PT. IS ALERT BUT FORGETFUL, ON 3L HUMIDIFIED 02. LAST NIGHT HAD CRITICAL TROP OF 4.0 UP FROM 3.8. PHYSICIAN MADE AWARE. NO NEW ORDERS RECEIVED. PT. DENIED CP. PLAN TO MONITOR HH. PT. RESTING COMFORTABLY IN BED, NO APPARENT DISTRESS NOTED. CALL LIGHT WITHIN REACH, SIDE RAILS UP X2, AND BED ALARM ON FOR SAFETY. WILL CONT TO MONITOR.
[2019-08-23 05:02] LABS: Hematocrit 20.3 % (37.0-53.0); Hemoglobin 6.6 g/dL (13.5-17.5); Mean Corpuscular HGB 28.8 pg (26.0-34.0); Mean Corpuscular HGB Conc 32.5 g/dL (31.5-36.5); Mean Corpuscular Volume 89 fL (80-100); Mean Platelet Volume 11.1 fL (9.1-12.4); NRBC ABSOLUTE 0.11 K/mm3 (0.00-0.02); NRBC Auto 2.7 /100 WBC (0.0-0.2); Platelet Count 235 K/mm3 (150-400); RDW Coefficient Variation 19.1 % (11.7-14.2); RDW Standard Deviation 57.5 fL (35.1-46.3); Red Blood Cell Count 2.29 M/mm3 (4.30-5.90); White Blood Cell Count 4.13 K/mm3 (4.00-11.30)
[2019-08-23 05:19] LABS: International Normalized Ratio 3.01; Prothrombin Time Results 30.3 Sec (9.7-11.5)
[2019-08-23 05:27] LABS: Magnesium, Blood 2.3 mg/dL (1.6-2.4)
[2019-08-23 05:32] LABS: Alanine Aminotransfer (ALT/SGP 36 U/L (12-78); Albumin, Blood 3.3 g/dL (3.4-5.0); Albumin/Globulin Ratio 0.8 (0.8-1.8); Alk Phos 117 U/L (50-136); Anion Gap 7 mmol/L (6-16); Aspartate Aminotrans (AST/SGOT 33 U/L (12-37); Bilirubin, Total 3.4 mg/dL (0.1-1.0); Blood Urea Nitrogen 34 mg/dL (8-24); Bun/Creatinine Ratio 29.8 (12.0-20.0); CO2, Blood 24 mmol/L (21-32); Calcium, Blood 8.7 mg/dL (8.5-10.1); Chloride, Blood 107 mmol/L (98-108); Creatinine, Blood 1.14 mg/dL (0.60-1.20); Globulin, Blood 4.3 g/dL (2.2-4.0); Glomerular Filtration Rate >60 (60-); Glucose, Blood 175 mg/dL (70-99); Potassium, Blood 4.3 mmol/L (3.5-5.5); Sodium, Blood 138 mmol/L (136-145); Total Protein, Blood 7.6 g/dL (6.4-8.2)
[2019-08-23 05:53] LABS: BASOPHILS PERCENT MAN 0 % (0-2); EOSINOPHILS PERCENT MAN 0 % (0-6); LYMPHOCYTES ABSOLUTE MAN 1.11 K/mm3 (0.84-5.20); LYMPHOCYTES PERCENT MAN 27 % (21-46); MONOCYTES ABSOLUTE MAN 2.47 K/mm3 (0.16-1.47); MONOCYTES PERCENT MAN 60 % (4-13); NEUTROPHILS ABSOLUTE MAN 0.53 K/mm3 (1.96-9.15); SEG NEUTROPHILS PERCENT MAN 13 % (41-73); TOTAL CELLS COUNTED 100
--- NOTE | 2019-08-23 06:19 | NUR ---
Patient gave this student nurse permission to take care of him from 1300 to 1830 on 08/23/2019.
--- NOTE | 2019-08-23 16:02 | NUR ---
On Friday, August 23, 2019 at 1530, patient gave verbal consent for me to assist his RN in his healthcare for tommorrow. Patient was alert and orientanted to time, place, and situation.
--- NOTE | 2019-08-23 16:40 | NUR ---
SHIFT SUMMARY- PT A/O, FORGETFUL AT TIMES. PT MEDICATED X1 WITH NORCO FOR CHRONIC RIGHT SIDE PAIN. UP TO CHAIR WITH 1 ASSIST. LS CLEAR, TITRATED FROM 3L WITH SATS AT 96% TO 2L WITH SATS AT 95%. CONT BIOX IN PLACE. HRR. TELE PACED AT 94. IV LASIX GIVEN TODAY, 1 UNIT PRBC GIVEN FOR HGB OF 6.6. CARDIOLOGY CONSULTED FOR ELEVATED TROPONINS BUT HAS NOT BEEN SEEN YET. NO OTHER ACUTE CHANGES THIS SHIFT.
[2019-08-24 04:38] LABS: Hematocrit 21.9 % (37.0-53.0); Hemoglobin 7.2 g/dL (13.5-17.5)
--- NOTE | 2019-08-24 04:51 | NUR ---
SHIFT SUMMARY- PT. CONFUSED LAST NIGHT. NO C/O PAIN T/O THE NIGHT. PT. REPOSITIONED FOR COMFORT AND WAS ABLE TO SLEEP MOST OF THE SHIFT. PT. REMAINS ON 2L OF 02, SATS AT 94%. HH THIS AM 7.2. PT. APPEARS TO BE RESTING COMFORTABLY IN BED, NO APPARENT DISTRESS NOTED. CALL LIGHT WITHIN REACH, SIDE RAILS UP X2, AND BED ALARM ON. WILL CONT TO MONITOR.
[2019-08-24 04:54] LABS: Anion Gap 8 mmol/L (6-16); Blood Urea Nitrogen 38 mg/dL (8-24); Bun/Creatinine Ratio 35.5 (12.0-20.0); CO2, Blood 24 mmol/L (21-32); Calcium, Blood 8.6 mg/dL (8.5-10.1); Chloride, Blood 105 mmol/L (98-108); Creatinine, Blood 1.07 mg/dL (0.60-1.20); Glomerular Filtration Rate >60 (60-); Glucose, Blood 164 mg/dL (70-99); Sodium, Blood 137 mmol/L (136-145)
[2019-08-24 04:58] LABS: Prothrombin Time Results 48.7 Sec (9.7-11.5)
[2019-08-24 04:59] LABS: International Normalized Ratio 4.98
[2019-08-24] MEDS ORDERED: METO25 PO (11:25)
--- NOTE | 2019-08-24 11:39 | NUR ---
SPOKE WITH DR CHAPMAN REGARDING INR OF 4.89 AND COUMADIN ORDERS UPON DISCHARGE. PER DR CHAPMAN SEE IF THERES A COUMADIN CLINIC SINCE PT IS IN BETWEEN PCP'S, PT NEW PT APPT SHCEDULED FOR Aug. PER DR CHAPMAN RECHECK INR THURSDAY AND HOLD COUMADIN. CALLED AND SPOKE WITH JO ANN IN PHARMACY WHO REPORTS [facility] MANAGES COUMADIN AN OUTPATIENT FOR THIS PT. PER JO ANN HOLD COUMADIN FOR 2 DAYS AND REDRAW ON THURSDAY, PT HAS STANDING LAB ORDERS.
--- NOTE | 2019-08-24 13:35 | NUR ---
DISCHARGE INSTRUCTIONS REVIEWED WITH PT AND SPOUSE. NEW MEDS FAXED TO PHARMACY AND F/U MADE WITH NEW PCP FOR SOONER. SPOKE WITH PT AND SPOUSE IN DEPTH TO HOLD COUMADIN FOR 2 DAYS AND REDRAW AT [facility] ON THURSDAY, THEY SHOWED UNDERSTANDING. PALLIATIVE CARE IN TO SEE PT PRIOR TO DISCHARGE TO DISCUSS POLST.
--- NOTE | 2019-08-24 13:44 | NUR ---
POLST: Pt is alert, oriented. He is looking forward to going home. Reviewed POLST form with . She has two signed POLST forms for the pt. Both are signed by Dr. Harding. She also has a new POLST form that is not filled out. Discussed and reviewed. Instructed that she doesn't need to fill out another form for him if the prior form is correct. She agrees that he wants to be full code. Copy of correct POLST for hospital records, shredded signed duplicate POLST form on her request. She is going to keep the blank POLST document for herself. Instructed that she can fill it out with her wishes and take it to her next doctor appointment to have it signed. No other concerns. Pt is discharging.
--- NOTE | 2019-08-24 13:44 | NUR ---
PT DISCHARGED HOME WITH SPOUSE AT 1342. ESCORTED OUT VIA W/C.
== END 2019-08-24 13:43 | disposition home or self-care (01) | DRG 840 ==
LOC: ER 05:19 → MEDS 08:07 → ENPENDDIS 08-24 13:29 → MEDS 08-24 13:43
PROVIDERS: Emergency Medicine; Hospitalist; ADMIT Internal Medicine
PROC: 30233N1 Transfusion of Nonautologous Red Blood Cells into Peripheral Vein, Percutaneous Approach (ICD-10-PCS; principal; 2019-08-22)
DX: C94.6 Myelodysplastic disease, not elsewhere classified (principal); I21.A1 Myocardial infarction type 2; I50.22 Chronic systolic (congestive) heart failure; D63.8 Anemia in other chronic diseases classified elsewhere; Z79.01 Long term (current) use of anticoagulants; Z86.711 Personal history of pulmonary embolism; Z90.81 Acquired absence of spleen; Z95.2 Presence of prosthetic heart valve; H40.9 Unspecified glaucoma; K22.70 Barrett's esophagus without dysplasia; Z87.891 Personal history of nicotine dependence; R73.9 Hyperglycemia, unspecified
CPT/HCPCS: 36415; 36430; 71046; 80048; 80053; 82947; 83735; 83880; 84484; 85014; 85018; 85025; 85610; 86850; 86900; 86901; 86923; 93005; 93010; 93308; 93321; 94762; 99285-25; A9270; A9270-GY; J1940; J7030; J7050; P9016

== ENCOUNTER 2019-10-20 00:12 | Day surgery (SDC) | payer MEDICARE ==
[2019-10-17 18:22] LABS: Hematocrit 22.7 % (37.0-53.0); Mean Corpuscular HGB 28.6 pg (26.0-34.0); Mean Corpuscular HGB Conc 30.8 g/dL (31.5-36.5); Mean Corpuscular Volume 93 fL (80-100); Mean Platelet Volume 10.7 fL (9.1-12.4); NRBC ABSOLUTE 0.02 K/mm3 (0.00-0.02); NRBC Auto 0.7 /100 WBC (0.0-0.2); Platelet Count 267 K/mm3 (150-400); RDW Coefficient Variation 18.7 % (11.7-14.2); RDW Standard Deviation 60.9 fL (35.1-46.3); Red Blood Cell Count 2.45 M/mm3 (4.30-5.90); White Blood Cell Count 2.99 K/mm3 (4.00-11.30)
[2019-10-17 18:37] LABS: International Normalized Ratio 2.66; Prothrombin Time Results 26.9 Sec (9.7-11.5)
[2019-10-17 18:53] LABS: BASOPHILS ABSOLUTE MAN 0.05 K/mm3 (0.00-0.23); BASOPHILS PERCENT MAN 2 % (0-2); EOSINOPHILS PERCENT MAN 0 % (0-6); LYMPHOCYTES ABSOLUTE MAN 2.06 K/mm3 (0.84-5.20); LYMPHOCYTES PERCENT MAN 69 % (21-46); MONOCYTES PERCENT MAN 27 % (4-13); NEUTROPHILS ABSOLUTE MAN 0.05 K/mm3 (1.96-9.15); SEG NEUTROPHILS PERCENT MAN 2 % (41-73); TOTAL CELLS COUNTED 100
[~2019-10-20 00:12] MED LIST changes: +ATOR10 PO; -ATOR40TA PO; +Effexor Xr37.5 MG PO; +METO25 PO; +MIRALAX17 GM PO; +Norco 5-325 Ta1 EACH PO
== END 2019-10-20 17:36 | disposition home or self-care (01) ==
LOC: ATC 00:12 → EDSTATUS 15:30 → ATC 17:36
PROVIDERS: Internal Medicine Cardiovascular Disease; Internal Medicine Hematology & Oncology
DX: D46.9 Myelodysplastic syndrome, unspecified (principal); I35.9 Nonrheumatic aortic valve disorder, unspecified; I11.0 Hypertensive heart disease with heart failure; I50.22 Chronic systolic (congestive) heart failure; F43.10 Post-traumatic stress disorder, unspecified; D61.818 Other pancytopenia; R07.89 Other chest pain; G89.29 Other chronic pain; Z79.899 Other long term (current) drug therapy; Z95.2 Presence of prosthetic heart valve; Z79.01 Long term (current) use of anticoagulants; Z87.891 Personal history of nicotine dependence; Z79.1 Long term (current) use of non-steroidal anti-inflammatories (NSAID)
CPT/HCPCS: 36415; 36430; 85025; 85610; 86850; 86900; 86901; 86923; J7050; P9016

== ENCOUNTER 2019-10-24 11:42 | Inpatient (IN) | payer MEDICARE ==
[~2019-10-24] VITALS: Ht 188 cm; Wt 85.4 kg
[2019-10-24 12:46] LABS: BASOPHILS ABSOLUTE AUTO 0.01 K/mm3 (0.00-0.23); BASOPHILS PERCENT AUTO 0 % (0-2); EOSINOPHILS PERCENT AUTO 0 % (0-6); Hematocrit 18.2 % (37.0-53.0); Mean Corpuscular HGB 28.5 pg (26.0-34.0); Mean Corpuscular HGB Conc 31.3 g/dL (31.5-36.5); Mean Corpuscular Volume 91 fL (80-100); Mean Platelet Volume 11.4 fL (9.1-12.4); NRBC ABSOLUTE 0.06 K/mm3 (0.00-0.02); Platelet Count 216 K/mm3 (150-400); RDW Coefficient Variation 18.3 % (11.7-14.2); RDW Standard Deviation 57.7 fL (35.1-46.3)
[2019-10-24 12:48] LABS: IMMATURE GRAN ABSOLUTE AUTO 0.01 K/mm3 (0.00-0.10); IMMATURE GRAN PERCENT AUTO 0 % (0-1); LYMPHOCYTES ABSOLUTE AUTO 1.29 K/mm3 (0.84-5.20); LYMPHOCYTES PERCENT AUTO 43 % (21-46); MONOCYTES ABSOLUTE AUTO 1.38 K/mm3 (0.16-1.47); MONOCYTES PERCENT AUTO 46 % (4-13); NEUTROPHILS ABSOLUTE AUTO 0.31 K/mm3 (1.96-9.15); NEUTROPHILS PERCENT AUTO 10 % (41-73)
[2019-10-24 12:49] LABS: Hemoglobin 5.7 g/dL (13.5-17.5)
[2019-10-24 13:02] LABS: Alanine Aminotransfer (ALT/SGP 26 U/L (12-78); Albumin/Globulin Ratio 0.7 (0.8-1.8); Alk Phos 148 U/L (50-136); Anion Gap 8 mmol/L (6-16); Aspartate Aminotrans (AST/SGOT 20 U/L (12-37); Bilirubin, Total 2.2 mg/dL (0.1-1.0); Blood Urea Nitrogen 21 mg/dL (8-24); Bun/Creatinine Ratio 23.4 (12.0-20.0); CO2, Blood 22 mmol/L (21-32); Calcium, Blood 8.6 mg/dL (8.5-10.1); Chloride, Blood 109 mmol/L (98-108); Globulin, Blood 4.6 g/dL (2.2-4.0); Glomerular Filtration Rate >60 (60-); Glucose, Blood 131 mg/dL (70-99); Potassium, Blood 3.8 mmol/L (3.5-5.5); Sodium, Blood 139 mmol/L (136-145); Total Protein, Blood 7.6 g/dL (6.4-8.2); Troponin I 0.125 ng/mL (0.000-0.040)
[2019-10-24 13:10] LABS: Influenza A Negative (NEGATIVE); Influenza B Negative (NEGATIVE)
[2019-10-24 13:11] LABS: International Normalized Ratio 2.3; Prothrombin Time Results 23.5 Sec (9.7-11.5)
[2019-10-24] MEDS ORDERED: GABAPENTIN600 MG PO (13:58)
[2019-10-24 18:22] LABS: Hematocrit 19.5 % (37.0-53.0); Hemoglobin 6.2 g/dL (13.5-17.5)
--- NOTE | 2019-10-24 20:01 | NUR ---
PT ARRIVED FROM [facility] VIA STRETCHER AT 1630. HGB: 5.7 PT INFUSING WITH 1 PRBC UPON ARRIVAL NO ISSUES ENCOUNTERED. IV LASIX ONE TIME ORDERED. 2ND BAG WAS INFUSED 1900 BY VIOLETA NURSE. PT IS HERE FOR PNA AND IS TO R/O COVID, AWAITING FOR RESPIS PANEL RESULT. REPORT GIVEN TO ONCOMING NURSE
[2019-10-24 20:43] LABS: Adenovirus Not Detected (NOT DETECT); Bordetella pertussis Not Detected (NOT DETECT); Chlamydophila pneumoniae Not Detected (NOT DETECT); Coronavirus 229E Not Detected (NOT DETECT); Coronavirus HKU1 Not Detected (NOT DETECT); Coronavirus NL63 Not Detected (NOT DETECT); Coronavirus OC43 Not Detected (NOT DETECT); Human Metapneumovirus Not Detected (NOT DETECT); Human Rhinovirus/Enterovirus Not Detected (NOT DETECT); Influenza A/2009-H1 Not Detected (NOT DETECT); Influenza A/H1 Not Detected (NOT DETECT); Influenza A/H3 Not Detected (NOT DETECT); Influenza B Not Detected (NOT DETECT); Parainfluenza Virus 1 Not Detected (NOT DETECT); Parainfluenza Virus 2 Not Detected (NOT DETECT); Parainfluenza Virus 3 Not Detected (NOT DETECT); Parainfluenza Virus 4 Not Detected (NOT DETECT); Respiratory Syncytial Virus Not Detected (NOT DETECT)
[2019-10-24 20:44] LABS: Mycoplasma pneumoniae Not Detected (NOT DETECT)
[2019-10-25 06:22] LABS: Mean Corpuscular HGB 28.6 pg (26.0-34.0); Mean Corpuscular HGB Conc 31.8 g/dL (31.5-36.5); Mean Corpuscular Volume 90 fL (80-100); Mean Platelet Volume 10.8 fL (9.1-12.4); NRBC ABSOLUTE 0.05 K/mm3 (0.00-0.02); NRBC Auto 1.7 /100 WBC (0.0-0.2); Platelet Count 214 K/mm3 (150-400); RDW Coefficient Variation 17.6 % (11.7-14.2); RDW Standard Deviation 54.3 fL (35.1-46.3); Red Blood Cell Count 2.45 M/mm3 (4.30-5.90)
[2019-10-25 06:45] LABS: Alanine Aminotransfer (ALT/SGP 27 U/L (12-78); Albumin, Blood 3.1 g/dL (3.4-5.0); Albumin/Globulin Ratio 0.6 (0.8-1.8); Alk Phos 175 U/L (50-136); Anion Gap 10 mmol/L (6-16); Aspartate Aminotrans (AST/SGOT 16 U/L (12-37); Bilirubin, Total 2.6 mg/dL (0.1-1.0); Blood Urea Nitrogen 24 mg/dL (8-24); Bun/Creatinine Ratio 25.2 (12.0-20.0); CO2, Blood 23 mmol/L (21-32); Calcium, Blood 8.6 mg/dL (8.5-10.1); Chloride, Blood 107 mmol/L (98-108); Creatinine, Blood 0.95 mg/dL (0.60-1.20); Globulin, Blood 4.8 g/dL (2.2-4.0); Glomerular Filtration Rate >60 (60-); Glucose, Blood 150 mg/dL (70-99); Potassium, Blood 3.9 mmol/L (3.5-5.5); Sodium, Blood 140 mmol/L (136-145); Total Protein, Blood 7.9 g/dL (6.4-8.2)
[2019-10-25 07:15] LABS: BASOPHILS ABSOLUTE MAN 0.02 K/mm3 (0.00-0.23); BASOPHILS PERCENT MAN 1 % (0-2); EOSINOPHILS PERCENT MAN 0 % (0-6); LYMPHOCYTES ABSOLUTE MAN 1.01 K/mm3 (0.84-5.20); LYMPHOCYTES PERCENT MAN 35 % (21-46); MONOCYTES ABSOLUTE MAN 1.39 K/mm3 (0.16-1.47); MONOCYTES PERCENT MAN 48 % (4-13); NEUTROPHILS ABSOLUTE MAN 0.46 K/mm3 (1.96-9.15); SEG NEUTROPHILS PERCENT MAN 16 % (41-73); TOTAL CELLS COUNTED 100
--- NOTE | 2019-10-25 07:58 | NUR ---
SHIFT SUMMARY NO ACUTE CHANGES NOTED THROUGH THE NIGHT. PT REMAINS A&O X3, VSS, O2 SATS >95% VIA NC @ 2 L. 2ND UNIT PRBC'S INFUSED WNL, SWABS WERE OBTAINED & SENT TO LAB FOR COVID 19 R/O. PT HAS BEEN WATCHING THE NEWS AND HAS BECAME INCREASINGLY ANXIOUS, HE HAS IF HE IS "GOING TO " MULTIPLE TIMES & HAS NEEDED CONTINUAL REASSURANCE AND EDUCATION. HE WAS ENC TO WATCH PROGRAMS ON TV INSTEAD OF THE NEWS, DB/COUGH WAS ENC. STAND BY ASSIST TO THE BATHROOM. PT HAD A SMALL BROWN STOOL, DENIES HAVING BLACK STOOL @ HOME. HE IS RESTING QUIETLY THIS MORNING, REPORT WAS GIVEN TO DAY RN, CALL LIGHT IN REACH.
--- NOTE | 2019-10-25 18:22 | NUR ---
SHIFT SUMMARY: PT ALERT TO BASELINE, FORGETFUL AT TIMES. PT STILL TO R/O COVID AWAITING FOR RESULT. PT CONTINUES ON IV ABO FOR PNA, DIURETIC GIVEN X 2, PT WITH DECENT AMOUNT OF OUTPUT. PT STILL HAS WHEEZING UPON AUSCULTATION BREATHING TX PROVIDED PER RT AND WAS EFFECTIVE. HRR PACED AT 100'S FOR THE SHIFT, NO EVENTS DENIES ANY CHEST PAIN/PRESSURE. PT 1PA VIA BSC NO ISSUES WITH TRANSFERS. PT WAS RUNNING A LOW GRADE TEMP 99.6-100.8 FOR THE SHIFT, TYLENOL GIVEN TEMP WENT DOWN TO 99. NORCO GIVEN WELL FOR HEADACHE AND WAS EFFECTIVE. WAS IN TO VISIT COMPLIANT WITH MASK PROTOCOL. TO GIVE REPORT TO ONCOMING SHIFT. WILL MONITOR
[2019-10-26 04:22] LABS: International Normalized Ratio 2.82; Prothrombin Time Results 28.5 Sec (9.7-11.5)
--- NOTE | 2019-10-26 05:31 | NUR ---
SHIFT SUMMARY HAS RESTED WELL THIS SHIFT. SPECIAL ISOLATION MAINTAINED. HAD AUDIBLE RHONCHI AT MIDNIGHT, BUT WAS ABLE TO CLEAR WITH COUGH. HAS BEEN MEDICATED FOR PAIN X2, SECOND TIME WITH A LOW GRADE FEVER OF 99.9 WELL. GIVEN A SECOND DOSE OF LASIX THIS SHIFT PER MD ORDERS. DENIES FURTHER NEEDS OR WANTS AT THIS TIME. SAFETY MEASURES IN PLACE. WILL GIVE HAND OFF TO ONCOMING SHIFT USING SBAR DURING BEDSIDE REPORT.
[2019-10-26 07:47] LABS: Hematocrit 19.7 % (37.0-53.0); Hemoglobin 6.2 g/dL (13.5-17.5); Mean Corpuscular HGB 28.4 pg (26.0-34.0); Mean Corpuscular HGB Conc 31.5 g/dL (31.5-36.5); Mean Corpuscular Volume 90 fL (80-100); Mean Platelet Volume 10.3 fL (9.1-12.4); NRBC ABSOLUTE 0.04 K/mm3 (0.00-0.02); NRBC Auto 1.5 /100 WBC (0.0-0.2); Platelet Count 189 K/mm3 (150-400); RDW Coefficient Variation 17.2 % (11.7-14.2); RDW Standard Deviation 54.4 fL (35.1-46.3); Red Blood Cell Count 2.18 M/mm3 (4.30-5.90); White Blood Cell Count 2.59 K/mm3 (4.00-11.30)
[2019-10-26 08:15] LABS: BASOPHILS PERCENT MAN 0 % (0-2); EOSINOPHILS PERCENT MAN 0 % (0-6); LYMPHOCYTES ABSOLUTE MAN 1.42 K/mm3 (0.84-5.20); LYMPHOCYTES PERCENT MAN 55 % (21-46); MONOCYTES ABSOLUTE MAN 0.85 K/mm3 (0.16-1.47); MONOCYTES PERCENT MAN 33 % (4-13); NEUTROPHILS ABSOLUTE MAN 0.31 K/mm3 (1.96-9.15); SEG NEUTROPHILS PERCENT MAN 12 % (41-73); TOTAL CELLS COUNTED 100
[2019-10-26 08:32] LABS: Alanine Aminotransfer (ALT/SGP 20 U/L (12-78); Albumin, Blood 2.7 g/dL (3.4-5.0); Albumin/Globulin Ratio 0.6 (0.8-1.8); Alk Phos 156 U/L (50-136); Anion Gap 6 mmol/L (6-16); Aspartate Aminotrans (AST/SGOT 12 U/L (12-37); Bilirubin, Total 1.6 mg/dL (0.1-1.0); Blood Urea Nitrogen 25 mg/dL (8-24); Bun/Creatinine Ratio 26.2 (12.0-20.0); CO2, Blood 27 mmol/L (21-32); Calcium, Blood 8.4 mg/dL (8.5-10.1); Chloride, Blood 107 mmol/L (98-108); Creatinine, Blood 0.96 mg/dL (0.60-1.20); Globulin, Blood 4.7 g/dL (2.2-4.0); Glomerular Filtration Rate >60 (60-); Glucose, Blood 130 mg/dL (70-99); Magnesium, Blood 2.3 mg/dL (1.6-2.4); Phosphorus, Blood 3.1 mg/dL (2.5-4.9); Potassium, Blood 3.7 mmol/L (3.5-5.5); Sodium, Blood 140 mmol/L (136-145); Total Protein, Blood 7.4 g/dL (6.4-8.2)
--- NOTE | 2019-10-26 19:05 | NUR ---
SHIFT SUMMARY NO ACUTE CHANGES THROUGHOUT SHIFT. PT REMAINED AWAKE & ALERT W/ PERIODS OF FORGETFULNESS. VSS, PT REMAINS AFEBRILE. DENIED ANY C/O CHEST PAIN/PRESSURE OR SOB. PLAN TO CONTINUE W/ IV ABX FOR PNA. PT REMAINS IN ISOLATION PRECAUTIONS FOR R/O COVID-19, RESULTS STILL PENDING. PT MEDICATED FOR PAIN THROGHOUT SHIFT PER EMAR. CURRENTLY RESTING IN BED IN NO DISTRESS. REPORT GIVEN TO ONCOMING RN.
--- NOTE | 2019-10-26 23:33 | NUR ---
ASSUMED CARE OF PATIENT AT [facility] FROM VERONICA Marino RN. PATIENT ALERT AND ORIENTED X4; FORGETFUL AT TIMES. PATIENT WAS AMBULATING INDEPENDETLY OUT OF ROOM TO ASK FOR HIS AT SHIFT CHANGE; BED ALARM SET; PATIENT HAS BEEN CALLING AFTER EDUCATED ON FALL RISK. PATIENT REPORTS CHRONIC PAIN IN HIS RIGHT CHEST; AFTER HE "CARRIED A LADDER WRONG"; MEDICATED PER EMAR. PATIENT DENIES NUMBNESS, TINGLING, DIZZINESS OR NAUSEA. PATIENT ONE ASSIST OUT OF BED TO BATHROOM. PACED ON TELE; OXYGEN SATURATION ABOVE 90% ON ROOM AIR. PIV S/L X2. PATIENT CURENTLY RESTING IN BED; CALL LIGHT IN REACH; BED IN LOWEST POSISTION; BED ALARM ON; WILL CONTINUE TO MONITOR AND ASSESS UNTIL END OF SHIFT.
[2019-10-27 04:35] LABS: International Normalized Ratio 4.69
--- NOTE | 2019-10-27 06:49 | NUR ---
PATIENT SLEPT ABOUT EIGHT HOURS LAST NIGHT. VSS. REQUESTED PAIN MEDICATION. INR CRITICALLY HIGH; NO COUMADIN ORDRED; PHARMACIST NOTIFIED. WILL CONTINUE TO MONITOR AND ASSESS UNTIL END OF SHIFT.
[2019-10-27 09:38] LABS: Hematocrit 20.2 % (37.0-53.0); Hemoglobin 6.3 g/dL (13.5-17.5); Mean Corpuscular HGB 28.6 pg (26.0-34.0); Mean Corpuscular HGB Conc 31.2 g/dL (31.5-36.5); Mean Corpuscular Volume 92 fL (80-100); Mean Platelet Volume 10.9 fL (9.1-12.4); NRBC ABSOLUTE 0.02 K/mm3 (0.00-0.02); NRBC Auto 1.2 /100 WBC (0.0-0.2); Platelet Count 184 K/mm3 (150-400); RDW Coefficient Variation 17.2 % (11.7-14.2); RDW Standard Deviation 55.6 fL (35.1-46.3); White Blood Cell Count 1.72 K/mm3 (4.00-11.30)
[2019-10-27 09:49] LABS: Alanine Aminotransfer (ALT/SGP 21 U/L (12-78); Albumin, Blood 2.9 g/dL (3.4-5.0); Albumin/Globulin Ratio 0.6 (0.8-1.8); Alk Phos 175 U/L (50-136); Anion Gap 4 mmol/L (6-16); Aspartate Aminotrans (AST/SGOT 14 U/L (12-37); Bilirubin, Total 1.2 mg/dL (0.1-1.0); Blood Urea Nitrogen 27 mg/dL (8-24); Bun/Creatinine Ratio 32.6 (12.0-20.0); CO2, Blood 28 mmol/L (21-32); Calcium, Blood 8.4 mg/dL (8.5-10.1); Chloride, Blood 106 mmol/L (98-108); Creatinine, Blood 0.83 mg/dL (0.60-1.20); Globulin, Blood 4.7 g/dL (2.2-4.0); Glomerular Filtration Rate >60 (60-); Glucose, Blood 138 mg/dL (70-99); Potassium, Blood 3.7 mmol/L (3.5-5.5); Sodium, Blood 138 mmol/L (136-145); Total Protein, Blood 7.6 g/dL (6.4-8.2)
[2019-10-27 10:36] LABS: BASOPHILS PERCENT MAN 0 % (0-2); EOSINOPHILS PERCENT MAN 0 % (0-6); LYMPHOCYTES ABSOLUTE MAN 0.87 K/mm3 (0.84-5.20); LYMPHOCYTES PERCENT MAN 51 % (21-46); MONOCYTES PERCENT MAN 35 % (4-13); NEUTROPHILS ABSOLUTE MAN 0.24 K/mm3 (1.96-9.15); SEG NEUTROPHILS PERCENT MAN 14 % (41-73); TOTAL CELLS COUNTED 100
--- NOTE | 2019-10-27 11:20 | NUR ---
1 UNIT PRBCS HUNG PER MD ORDER FOR HGB 6.3 TODAY. BLOOD VERIFIED W/ SECOND RN, AMERICO BRIZUELA. REMAINED W/ PT FOR FIRST 15 MIN OF TRANSFUSION. NO S/S OF ADVERSE RXN, VSS. PT STATES HE GETS FREQ BLOOD TRANSFUSIONS EVERY FEW WEEKS. BLOOD CURRENTLY INFUSING W/ OUT DIFFICULTY @ 150ML/HR. WILL CONTINUE TO MONITOR.
--- NOTE | 2019-10-27 12:25 | NUR ---
SHIFT SUMMARY/TRANSFER NOTE NO ACUTE CHANGES THROUGHOUT SHIFT. PT REMAINED AWAKE & ALERT W/ PERIODS OF FORGETFULNESS, BUT EASILY REORIENTED. VSS; PT ON RA, PULSE OX >92%. REMAINS AFEBRILE. IV ABX WERE SWICTHED TO PO TODAY. PLAN FOR POSSIBLE DISCHARGE ONCE COVID-19 RESULTS COME BACK. PT IS CHRONICALLY ANEMIC REQUIRING BLOOD TRANSFUSIONS EVERY FEW WEEKS. HGB LEVEL 6.3 TODAY; PT CURRENTLY RECEIVING 1 UNIT PRBCS. PT WAS MEDICATED FOR CHRONIC RIGHT SIDED PAIN PER EMAR. PT STATUS CHANGED TO MED W/ TELE. REPORT WAS CALLED TO NARENDRA GALLEGOS @ 0110. PT WAS TRANSPORTED FROM PCU TO MEDICAL FLOOR IN STABLE CONDITION VIA WHEELCHAIR W/ 1 UNIT PRBCS INFUSING. ALL BELONGINGS SENT W/ PT.
--- NOTE | 2019-10-27 13:08 | NUR ---
RECEIVED REPORT FROM BINDING STITCHER VERONICA @ 1135. PATIENT ARRIVED TO ROOM 343 SHORTLY AFTER NOON.
--- NOTE | 2019-10-27 16:31 | NUR ---
PATIENT IS ALERT AND ORIENTED WITH SOME CONFUSION NOTED. RECIEVED A UNIT OF PRBC's THIS AFTERNOON AND TOLERATED WITHOUT COMPLICATIONS; VITALS REMAINED STABLE. PATIENT FORGETS HOW TO USE CALL LIGHT SO WILL YELL OUT FOR STAFF ASSIST AT TIMES, BUT IS OTHERWISE COOPERATIVE. PATIENT HAS DENIED PAIN AND DISCOMFORT. WILL CONTINUE TO MONITOR AND PROVIDE CARE NEEDED.
--- NOTE | 2019-10-28 04:36 | NUR ---
SHIFT SUMMARY PT HAS HAD NO ACUTE CHANGES HIS SHIFT, HAS BEEN A&O W/SOME CONFUSION, MEDICATED 1X FOR R CHEST WALL PAIN, NO OTHER COMPLAINTS OF ANY KIND. PT APPEARS TO BE SLEEPING AT THIS TIME, CALL LIGHT IN REACH, WILL CONT TO MONITOR UNTIL REPORT GIVEN TO DAY RN.
[2019-10-28 05:53] LABS: International Normalized Ratio 3.98; Prothrombin Time Results 39.4 Sec (9.7-11.5)
[2019-10-28 07:02] LABS: Hematocrit 24.4 % (37.0-53.0); Hemoglobin 7.6 g/dL (13.5-17.5)
--- NOTE | 2019-10-28 08:45 | NUR ---
DR AMEZCUA HERE TO SEE PT. DISCUSSED PT'S STATUS INCLUDING VS AND LS.
--- NOTE | 2019-10-28 14:35 | NUR ---
REPORT BEEN GIVEN TO Isaias WHO IS TAKING OVER CARE AT THIS TIME.
--- NOTE | 2019-10-28 19:21 | NUR ---
SHIFT SUMMARY- PT ALERT ORIENTED AND INDEPENDENT IN THE ROOM. ASSUMED CARE OF PT LATE IN THE SHIFT MEDICATED FOR RIGHT RIB PAIN ONCE WITH TYLENOL. PAIN SEEMS WELL MANAGED WITH THIS. PASSED ON IN REPORT TO NIGHT NARENDRA FONG. NO ACUTE CHANGE.
--- NOTE | 2019-10-29 05:00 | NUR ---
SHIFT SUMMARY PT HAS HAD NO ACUTE CHANGES THIS SHIFT, NO C/O ANY KIND, PT SLEPT T/O THE NIGHT, BEDRESTING AT THIS TIME, HEALTH INFORMATION TECHNOLOGIST AT BEDSIDE, CALL LIGHT IN REACH, WILL CONT TO MONITOR UNTIL REPORT GIVEN TO DAY RN.
[2019-10-29 05:34] LABS: International Normalized Ratio 3.96; Prothrombin Time Results 39.2 Sec (9.7-11.5)
--- NOTE | 2019-10-29 07:46 | NUR ---
received report from Noc nurse, a+o, bed in low position, independant in rm, afebrial this am, saline locked, air, will continue to monitor and treat as appropriate
[2019-10-29] MEDS ORDERED: CEFD300 PO ×2 (10:47→11:06)
--- NOTE | 2019-10-29 12:33 | NUR ---
REVIEWED discharge information, med list, hospital stay, and expectations, assisted clothes change, escorted to door by staff, a+o but eager to go, reminded no coumadin until after ck blood on thursday, verbal and note
== END 2019-10-29 12:40 | disposition home or self-care (01) | DRG 291 ==
LOC: ER 11:42 → ICUW 13:54 → PCU 16:21 → MEDS 10-27 12:25
PROVIDERS: Emergency Medicine; Internal Medicine; Physician Assistant; ADMIT Family Medicine
PROC: 30233N1 Transfusion of Nonautologous Red Blood Cells into Peripheral Vein, Percutaneous Approach (ICD-10-PCS; principal; 2019-10-24)
DX: I11.0 Hypertensive heart disease with heart failure (principal); J18.9 Pneumonia, unspecified organism; D46.9 Myelodysplastic syndrome, unspecified; I50.23 Acute on chronic systolic (congestive) heart failure; I25.10 Atherosclerotic heart disease of native coronary artery without angina pectoris; I48.91 Unspecified atrial fibrillation; Z95.0 Presence of cardiac pacemaker; Z79.01 Long term (current) use of anticoagulants; E78.5 Hyperlipidemia, unspecified; F43.10 Post-traumatic stress disorder, unspecified; F32.9 Major depressive disorder, single episode, unspecified; F41.9 Anxiety disorder, unspecified; G89.4 Chronic pain syndrome; D63.0 Anemia in neoplastic disease; Z95.2 Presence of prosthetic heart valve; R07.89 Other chest pain
CPT/HCPCS: 0099U; 36415; 36430; 71045; 71250; 80053; 82272; 83605; 83735; 83880; 84100; 84145; 84484; 85014; 85018; 85025; 85610; 86850; 86900; 86901; 86923; 87040; 87804; 93005; 93010; 94640; 94760; 96365; 96367; 99285-25; A9270; A9270-GY; J0456; J0696; J1940; J7030; J7050; P9016; U0002

== ENCOUNTER 2019-11-15 13:45 | Inpatient (IN) | payer MEDICARE, OTHER ==
[~2019-11-15] VITALS: Ht 188 cm; Wt 83.1 kg
[~2019-11-15 13:45] MED LIST changes: -CELE200 PO
[2019-11-15 14:15] LABS: Hematocrit 22.9 % (37.0-53.0); Mean Corpuscular HGB 28.3 pg (26.0-34.0); Mean Corpuscular HGB Conc 30.6 g/dL (31.5-36.5); Mean Corpuscular Volume 93 fL (80-100); Mean Platelet Volume 10.1 fL (9.1-12.4); NRBC ABSOLUTE 0.03 K/mm3 (0.00-0.02); NRBC Auto 1.1 /100 WBC (0.0-0.2); Platelet Count 203 K/mm3 (150-400); RDW Coefficient Variation 17.1 % (11.7-14.2); RDW Standard Deviation 55.4 fL (35.1-46.3); Red Blood Cell Count 2.47 M/mm3 (4.30-5.90); White Blood Cell Count 2.75 K/mm3 (4.00-11.30)
[2019-11-15 14:35] LABS: Alanine Aminotransfer (ALT/SGP 16 U/L (12-78); Albumin, Blood 3.5 g/dL (3.4-5.0); Albumin/Globulin Ratio 0.7 (0.8-1.8); Alk Phos 120 U/L (50-136); Anion Gap 4 mmol/L (6-16); Aspartate Aminotrans (AST/SGOT 11 U/L (12-37); Bilirubin, Total 1.4 mg/dL (0.1-1.0); Blood Urea Nitrogen 17 mg/dL (8-24); Bun/Creatinine Ratio 22.1 (12.0-20.0); CO2, Blood 28 mmol/L (21-32); Calcium, Blood 8.7 mg/dL (8.5-10.1); Chloride, Blood 106 mmol/L (98-108); Creatinine, Blood 0.77 mg/dL (0.60-1.20); Globulin, Blood 4.8 g/dL (2.2-4.0); Glomerular Filtration Rate >60 (60-); Glucose, Blood 171 mg/dL (70-99); Potassium, Blood 3.7 mmol/L (3.5-5.5); Sodium, Blood 138 mmol/L (136-145); Total Protein, Blood 8.3 g/dL (6.4-8.2)
[2019-11-15 14:53] LABS: BASOPHILS ABSOLUTE MAN 0.02 K/mm3 (0.00-0.23); BASOPHILS PERCENT MAN 1 % (0-2); EOSINOPHILS PERCENT MAN 0 % (0-6); LYMPHOCYTES ABSOLUTE MAN 1.89 K/mm3 (0.84-5.20); LYMPHOCYTES PERCENT MAN 69 % (21-46); MONOCYTES PERCENT MAN 22 % (4-13); NEUTROPHILS ABSOLUTE MAN 0.22 K/mm3 (1.96-9.15); SEG NEUTROPHILS PERCENT MAN 8 % (41-73); TOTAL CELLS COUNTED 100
[2019-11-15] MEDS ORDERED: PANT40 PO (16:27)
[2019-11-15] MEDS ORDERED: CELE200 PO (16:48)
[2019-11-15 17:19] LABS: International Normalized Ratio 2.69; Prothrombin Time Results 27.2 Sec (9.7-11.5)
--- NOTE | 2019-11-15 18:42 | NUR ---
Received report from NARENDRA Casiano. Patient admitted from ER to Med 338. Arrived to unit at 1828 and settled to room. Oriented patient to call light, bed in lowest position, will continue to monitor.
--- NOTE | 2019-11-16 04:14 | NUR ---
SHIFT SUMMARY ADMITTED FOR SYMPTOMATIC ANEMIA. FULL CODE. PT HAD A NOSEBLEED IN ER, HX OF MYELODYSPLASTIC SYNDROME FOR WHICH HE NORMALLY RECEIVES BLOOD TRANSFUSIONS EVERY 2 WEEKS. HE HAS NOT BEEN ABLE TO RECEIVE THEM RECENTLY. HE DOES TAKE COUMADIN AT HOME. SINCE HE HAS BEEN HERE HE HAS RECEIVED 2 L BLOOD. TELEMETRY IS MONITORING: TECH AT FIRST SAID HE HAD AFIB, BUT THEN CALLED ME BACK TO SAY IT'S A VENTRICULAR RHYTHM W/BBB. THIS PT DOES HAVE A HX OF AFIB. FOLLOWING H&H AND INR LABS IN MORNING. DR WINCHESTER IS CONSULT. 2 G LOW NA+ DIET. PACEMAKER IN PLACE. RA, SCD'S. PHYSICAL THERAPY/OT EVAL TOMORROW. HX: FALLS, HTN, CHRONIC PAIN, GLAUCOMA, HTN, PTSD, AORTIC VALVE REPLACEMENT. BNP WAS [phone]
[2019-11-16 05:08] LABS: Hematocrit 25.6 % (37.0-53.0); Hemoglobin 8.3 g/dL (13.5-17.5)
[2019-11-16 05:25] LABS: International Normalized Ratio 2.93; Prothrombin Time Results 29.5 Sec (9.7-11.5)
[2019-11-16 12:02] LABS: Source, Urine Clean Catch
[2019-11-16 12:30] LABS: Bilirubin, Urine Neg (Neg); Blood, Urine 4+ (Neg); Glucose Qualitative, Urine Neg (Neg); Ketones, Urine Neg (Neg); Leukocyte Esterase, Urine 1+ (Neg); Nitrite, Urine Neg (Neg); Protein, Urine 2+ (Neg); Specific Gravity, Urine 1.015 (1.003-1.022); Urobilinogen, Urine NORM (Normal)
[2019-11-16 12:51] LABS: Appearance, Urine Clear (Clear); Color, Urine Yellow (P-Yellow)
[2019-11-16 12:52] LABS: Bacteria Rare /hpf; Granular Casts 0-2 /lpf (0); Mucus Light (0-Heavy); Squamous Epithelial Cells Rare /hpf (Few)
--- NOTE | 2019-11-16 17:54 | NUR ---
SHIFT SUMMARY PATIENT DENIES PAIN, NAUSEA, AND SHORTNESS OF BREATH. PATIENT REPORTS FEELING WEAK AND TIRES. PATIENT HAD LOWGRADE FEVER THIS AM, RESOLVED WITH TYLENOL. PATIENT WORKED WITH PT AND OT TODAY. PATIENT UP ONE ASSIST WITH GAIT BELT/FWW TO BATHROMM. BLOOD CULTURES DRAWN. PATIENT'S APPETITE SOMEWHAT IMPROVED. CALL LIGHT IN REACH.
--- NOTE | 2019-11-17 04:34 | NUR ---
SHIFT SUMMARY PT REMAINS ASLEEP AT THIS TIME, NO ACUTE EVENTS NOTED T/O NIGHT, STABLE. WAS MONITORED EVERY 1-2 HOURS WITH NEEDS MET, DENIES NEEDS AT THIS TIME. CALL LIGHT, POSSESSIONS IN REACH, WCTM UNTIL DAY RN ASSUMES CARE.
[2019-11-17 04:56] LABS: International Normalized Ratio 3.12; Prothrombin Time Results 31.3 Sec (9.7-11.5)
[2019-11-17 08:33] LABS: Hematocrit 24.9 % (37.0-53.0); Hemoglobin 8.1 g/dL (13.5-17.5); Mean Corpuscular HGB 29.1 pg (26.0-34.0); Mean Corpuscular HGB Conc 32.5 g/dL (31.5-36.5); Mean Platelet Volume 10.9 fL (9.1-12.4); NRBC ABSOLUTE 0.02 K/mm3 (0.00-0.02); Platelet Count 148 K/mm3 (150-400); RDW Coefficient Variation 17.1 % (11.7-14.2); RDW Standard Deviation 54.5 fL (35.1-46.3); Red Blood Cell Count 2.78 M/mm3 (4.30-5.90); White Blood Cell Count 2.01 K/mm3 (4.00-11.30)
[2019-11-17 08:35] LABS: Alanine Aminotransfer (ALT/SGP 20 U/L (12-78); Albumin, Blood 2.8 g/dL (3.4-5.0); Albumin/Globulin Ratio 0.7 (0.8-1.8); Alk Phos 93 U/L (50-136); Anion Gap 5 mmol/L (6-16); Aspartate Aminotrans (AST/SGOT 30 U/L (12-37); Bilirubin, Total 1.7 mg/dL (0.1-1.0); Blood Urea Nitrogen 29 mg/dL (8-24); Bun/Creatinine Ratio 34.6 (12.0-20.0); CO2, Blood 25 mmol/L (21-32); Calcium, Blood 8.3 mg/dL (8.5-10.1); Chloride, Blood 106 mmol/L (98-108); Creatinine, Blood 0.84 mg/dL (0.60-1.20); Globulin, Blood 4.3 g/dL (2.2-4.0); Glomerular Filtration Rate >60 (60-); Glucose, Blood 119 mg/dL (70-99); Potassium, Blood 3.9 mmol/L (3.5-5.5); Sodium, Blood 136 mmol/L (136-145); Total Protein, Blood 7.1 g/dL (6.4-8.2)
[2019-11-17 08:57] LABS: Mean Corpuscular Volume 90 fL (80-100)
[2019-11-17 09:16] LABS: BASOPHILS PERCENT MAN 0 % (0-2); EOSINOPHILS ABSOLUTE MAN 0.04 K/mm3 (0.00-0.68); EOSINOPHILS PERCENT MAN 2 % (0-6); LYMPHOCYTES % ATYPICAL MANUAL 1 % (0-0); LYMPHOCYTES ABSOLUTE MAN 1.14 K/mm3 (0.84-5.20); LYMPHOCYTES PERCENT MAN 56 % (21-46); MONOCYTES ABSOLUTE MAN 0.74 K/mm3 (0.16-1.47); MONOCYTES PERCENT MAN 37 % (4-13); NEUTROPHILS ABSOLUTE MAN 0.08 K/mm3 (1.96-9.15); SEG NEUTROPHILS PERCENT MAN 4 % (41-73); TOTAL CELLS COUNTED 100
--- NOTE | 2019-11-17 13:44 | NUR ---
Spoke with Dr Werner prior to Pt visit. Dr Werner reports Pt would benefit from conversation regarding goals of care. Pt has had discussions in the past regarding hospice with Pt declining need. Pt resting in bed with his eyes closed upon arrival. Pt awakes easily to verbal stimuli. Pt denies pain, nausea, dyspnea, and anxiety. Attempted to engage in therapeutic discussion and listening. Pt is withdrawn and closed off to conversation. Attempted several topics of discussion with Pt's answers being short. Pt answers open ended questions with very little response. Pt does report wanting to go home and states he feels healthy. Therapeutic discussions were unsuccessful this visit but will attempt to engage with Pt tomorow. Pt may benefit from further conversations with his PCP Dr Werner regarding goals of care or with Dr Barragan. Palliative Care will remain available.
--- NOTE | 2019-11-17 17:48 | NUR ---
SHIFT SUMMARY PATIENT MEDICATED X1 FOR LOW GRADE FEVER AND X1 FOR RIB PAIN. DENIES NAUSEA AND SHORTNESS OF BREATH. PATIENT WORKED WITH PT AND OT TODAY. PATIET UP SBA W/FWW TO BR. PATIENT RESTING IN BED DURING SHIFT. PATIENT DECLINES TO SIT IN CHAIR. PATIENT EAGER TO DISCHARGE HOME. PALLIATIVE CARE CONSULTED ON PATIENT. CALL LIGHT IN REACH.
--- NOTE | 2019-11-17 18:21 | NUR ---
Initial spiritual care note: Mr. Estrada appeared open to conversation. He does not know why he is hospitalized and states "no one has told me anything." He says he feel fine and denied having any illnesses/medical conditions. He has been for 35 years. He and his recently moved from their family home to "a smaller place with other people." He retired from the [employer] and tells me he enjoys staying busy in his yard. At times he appeared to have trouble finding words/phrases. I can't help but wonder about his mentation. Regardless, he is listed as Christian, but says he has not attended religious sinece he was a child. He apeared to enjoy conversation and encouragement. He allowed me to pray for him. He states he is being discharged home tomorrow. I will remain available.
[2019-11-18 05:00] LABS: International Normalized Ratio 3.08; Prothrombin Time Results 30.9 Sec (9.7-11.5)
--- NOTE | 2019-11-18 07:15 | NUR ---
SHIFT SUMMARY ADMITTED FOR SYMPTOMATIC ANEMIA. FULL CODE. IN NEUTROPENIC PRECAUTIIONS, LOW WBC'S NOTED IN LABS. MYELODYSPLASTIC SYNDROME. DR WINCHESTER IS CONSULT. TELEMETRY IS MONITORING: AFIB @ 72 BPM W/PVC'S. ON COUMADIN AT HOME - HAS ARTIFICIAL AORTIC VALVE. RA, PACEMAKER IN PLACE. RAN A FEVER YESTERDAY, IV ANTIBIOTICS ARE SCHEDULED. RUNNING HYPOTENSIVE AT TIMES. HOPEFUL FOR DC TODAY. HX: AFIB, HTN, CHF. ON NEUTROPENIC DIET.
[2019-11-18] MEDS ORDERED: POTCHL20ER PO (08:29)
[2019-11-18] MEDS ORDERED: CEFD300 PO (08:29)
[2019-11-18] MEDS ORDERED: FURO20 PO (08:29)
--- NOTE | 2019-11-18 13:13 | NUR ---
PT DISCHARGED PT DISCHARGED AT 1300. PT IN STABLE CONDITION WITH VSS. PT EDUCATED ON DC INSTRUCTIONS AND GIVEN INFO FOR FOLLOW UP APPOINTMENT. PT REEDUCATED AT CARE. PT WHEELED OUT BY THIS RN AND DRIVEN HOME BY .
== END 2019-11-18 13:00 | disposition home or self-care (01) | DRG 812 ==
LOC: ER 13:45 → MEDS 13:46
PROVIDERS: Emergency Medicine; Family Medicine; ADMIT Internal Medicine
DX: D46.9 Myelodysplastic syndrome, unspecified (principal); I50.22 Chronic systolic (congestive) heart failure; Z79.01 Long term (current) use of anticoagulants; H40.9 Unspecified glaucoma; Z95.2 Presence of prosthetic heart valve; Z90.81 Acquired absence of spleen; Z87.891 Personal history of nicotine dependence; F43.10 Post-traumatic stress disorder, unspecified; G89.4 Chronic pain syndrome; E87.5 Hyperkalemia; F32.9 Major depressive disorder, single episode, unspecified; F41.9 Anxiety disorder, unspecified; I11.0 Hypertensive heart disease with heart failure; R07.89 Other chest pain; D70.9 Neutropenia, unspecified
CPT/HCPCS: 36415; 36430; 71045; 80053; 81001; 83880; 84145; 85007; 85014; 85018; 85025; 85027; 85610; 86850; 86900; 86901; 86923; 87040; 87086; 93005; 93010; 96365; 96366; 96374; 96375; 96376; 97110; 97162; 97166; 97530; 97535; 99285-25; A9270; A9270-GY; G0378; J0692; J1940; J2405; J7050; P9016

== ENCOUNTER 2019-12-16 00:08 | Day surgery (SDC) | payer MEDICARE ==
[~2019-12-16 00:08] MED LIST changes: +CELE200 PO; +FURO20 PO; +POTCHL20ER PO
--- NOTE | 2019-12-16 10:50 | NUR ---
DURING TRANSFUSION PT C/O R UPPER RIB PAIN WHICH HE STS IS COMMON. HE THEN C/O L LOWER FLANK/RIB PAIN WHICH WAS SHARP, PT ALSO HAD LOW GRADE FEVER. THIS RN CALLED DR WINCHESTER OFFICE AND SPOKE WITH ARLENE, SHE SAID TO GIVE PT TYLENOL 650MG, WHICH THE PT HAD REQUESTED. UPON COMPLETION OF TRANSFUSION THE LOW GRADE FEVER HAD RESOLVED, BUT THE PAIN CONTINUED AND PT NOW C/O DIZZINESS. PT STAYED IN ROOM FOR 15 MORE MINUTES FOR OBSERVATION. AT THE END OF 15 MINUTES, PT NO LONGER C/O L FLANK PAIN, R RIB PAIN HAD NOT CHANGED AND PT STILL HAD MILD DIZZINESS. THIS RN OFFERED TO TAKE PT TO THE ER, BUT HE DECLINED AND DECIDED TO GO HOME INSTEAD STATING THAT HE OFTEN FEELS DIZZY. PT VERBALIZED THAT IF HIS SYMPTOMS WORSENED HE WOULD CALL HIS DOCTOR OR GO TO ER. PT'S IS WAITING TO TAKE HIM HOME.
== END 2019-12-16 10:15 | disposition home or self-care (01) ==
LOC: ATC 00:08
DX: D46.9 Myelodysplastic syndrome, unspecified (principal); I11.0 Hypertensive heart disease with heart failure; I50.22 Chronic systolic (congestive) heart failure; R07.89 Other chest pain; R73.9 Hyperglycemia, unspecified; J94.9 Pleural condition, unspecified; Z87.891 Personal history of nicotine dependence; Z66 Do not resuscitate; Z79.899 Other long term (current) drug therapy; Z79.01 Long term (current) use of anticoagulants; Z95.2 Presence of prosthetic heart valve
CPT/HCPCS: 86850; 86900; 86901; 86923; A9270; J7050; P9016

== ENCOUNTER 2020-01-08 14:40 | Observation (INO) | payer MEDICARE ==
[~2020-01-08] VITALS: Ht 193 cm; Wt 92.5 kg
[~2020-01-08 14:40] MED LIST changes: +WARF5
[2020-01-08 15:27] LABS: Mean Corpuscular HGB Conc 31.1 g/dL (31.5-36.5); Mean Corpuscular Volume 93 fL (80-100); Mean Platelet Volume 11.1 fL (9.1-12.4); NRBC ABSOLUTE 0.03 K/mm3 (0.00-0.02); NRBC Auto 0.8 /100 WBC (0.0-0.2); Platelet Count 253 K/mm3 (150-400); RDW Coefficient Variation 17.3 % (11.7-14.2); RDW Standard Deviation 56.7 fL (35.1-46.3); Red Blood Cell Count 1.76 M/mm3 (4.30-5.90); White Blood Cell Count 3.73 K/mm3 (4.00-11.30)
[2020-01-08 15:28] LABS: Hematocrit 16.4 % (37.0-53.0); Hemoglobin 5.1 g/dL (13.5-17.5)
[2020-01-08 15:33] LABS: Anion Gap 10 mmol/L (6-16); Blood Urea Nitrogen 26 mg/dL (8-24); Bun/Creatinine Ratio 25.7 (12.0-20.0); CO2, Blood 22 mmol/L (21-32); Calcium, Blood 8.1 mg/dL (8.5-10.1); Chloride, Blood 105 mmol/L (98-108); Creatinine, Blood 1.01 mg/dL (0.60-1.20); Glomerular Filtration Rate >60 (60-); Glucose, Blood 160 mg/dL (70-99); Potassium, Blood 4.3 mmol/L (3.5-5.5); Sodium, Blood 137 mmol/L (136-145)
[2020-01-08 16:00] LABS: BASOPHILS PERCENT MAN 0 % (0-2); EOSINOPHILS ABSOLUTE MAN 0.03 K/mm3 (0.00-0.68); EOSINOPHILS PERCENT MAN 1 % (0-6); LYMPHOCYTES % ATYPICAL MANUAL 3 % (0-0); LYMPHOCYTES ABSOLUTE MAN 2.23 K/mm3 (0.84-5.20); LYMPHOCYTES PERCENT MAN 57 % (21-46); MONOCYTES ABSOLUTE MAN 0.96 K/mm3 (0.16-1.47); MONOCYTES PERCENT MAN 26 % (4-13); NEUTROPHILS ABSOLUTE MAN 0.48 K/mm3 (1.96-9.15); SEG NEUTROPHILS PERCENT MAN 13 % (41-73); TOTAL CELLS COUNTED 100
[2020-01-08] MEDS ORDERED: NEURONTIN600 MG PO (16:15)
--- NOTE | 2020-01-08 18:02 | NUR ---
shift summary patient is pleasant, alert and oriented. he WAS ADMITTED TO THE FLOOR AT 1730. HE IS CURRENTLY RUNNING 1 OF 2 UNITS OF PRBCS. HE STATES THIS IS NORMAL FOR HIM. AT THIS TIME WE WILL AWAIT ANY MORE ORDERS.
[2020-01-08 18:32] LABS: International Normalized Ratio 3.01; Prothrombin Time Results 30.3 Sec (9.7-11.5)
[2020-01-09 04:40] LABS: BASOPHILS ABSOLUTE AUTO 0.01 K/mm3 (0.00-0.23); BASOPHILS PERCENT AUTO 0 % (0-2); EOSINOPHILS PERCENT AUTO 0 % (0-6); Hemoglobin 6.1 g/dL (13.5-17.5); Mean Corpuscular HGB 29.2 pg (26.0-34.0); Mean Corpuscular HGB Conc 32.1 g/dL (31.5-36.5); Mean Corpuscular Volume 91 fL (80-100); Mean Platelet Volume 10.9 fL (9.1-12.4); NRBC ABSOLUTE 0.06 K/mm3 (0.00-0.02); NRBC Auto 1.9 /100 WBC (0.0-0.2); Platelet Count 218 K/mm3 (150-400); RDW Coefficient Variation 16.6 % (11.7-14.2); RDW Standard Deviation 51.9 fL (35.1-46.3); Red Blood Cell Count 2.09 M/mm3 (4.30-5.90); White Blood Cell Count 3.11 K/mm3 (4.00-11.30)
--- NOTE | 2020-01-09 04:50 | NUR ---
TRANSPORT RN SUMMARY PT RECIEVED 2 UNITS OF PRBC'S. PT SKIN COLOR IMPROVED AND PT REPORTED FEELING MUCH BETTER WITH A SIGNIFICANT IMPROVEMENT IN HIS SOB. NOTIFIED BY COST RECOVERY TECHNICIAN DURING FIRST PART OF SHIFT THAT PT WAS PACED IN THE LOW 100'S BUT HAD MULTIPLE SHORT EPISODES OF VTACH. PT ASYMPTOMATIC DURING THESE EPISODES. GAVE PT SCHEDULED METOPROLOL AND HR HAS BEEN 80-90'S WITH NO FURTHUR VTACH. SPOKE WITH MANUEL MARTIN REGARDING VTACH, TOLD TO CONTINUE TO MONITOR AT THIS POINT. NO ADDITIONAL ORDERS GIVEN. PT HAS RESTED MOST OF THE NIGHT AFTER BLOOD INFUSION FINISHED. LOW GRADE TEMP OF 99 DEGREES. VSS, WILL CONTINUE TO MONITOR.
[2020-01-09 04:53] LABS: International Normalized Ratio 3.09
[2020-01-09 05:39] LABS: IMMATURE GRAN ABSOLUTE AUTO 0.01 K/mm3 (0.00-0.10); IMMATURE GRAN PERCENT AUTO 0 % (0-1); LYMPHOCYTES ABSOLUTE AUTO 1.54 K/mm3 (0.84-5.20); LYMPHOCYTES PERCENT AUTO 50 % (21-46); MONOCYTES ABSOLUTE AUTO 1.22 K/mm3 (0.16-1.47); MONOCYTES PERCENT AUTO 39 % (4-13); NEUTROPHILS ABSOLUTE AUTO 0.33 K/mm3 (1.96-9.15); NEUTROPHILS PERCENT AUTO 11 % (41-73)
--- NOTE | 2020-01-09 16:02 | NUR ---
pt states feels sob. chest tightness. some anx. vitals 138/78, p 95, r 18, t 99.8, 95% ra. called dr benjamin orders given lasix and arturo brennan
--- NOTE | 2020-01-09 16:15 | NUR ---
light crackles in bilat bases noted. dr notified in last call. lasix ordered. did not recall dr. continue to monitor.
--- NOTE | 2020-01-09 17:18 | NUR ---
pt reports only minimal tightness remains. almost all gone. request only 1/2 mg klonopin.
--- NOTE | 2020-01-09 19:27 | NUR ---
PT PLEASANT TODAY. 1 UNIT BLOOD COMPLETE. LASIX GIVEN BETWEEN DR ORDERS. LUNGS CLEARED SOME. 2ND UNIT STARTED. RATE KEPT AT 100 R/T LIGHT CRACKLES IN BASES AND HX CHF. PT STATES NO MORE TIGHTNESS OR SOB NOTED. BED IN LOW POSITION, CALL LITE IN [facility], CALLS APPROP
[2020-01-09 21:55] LABS: Hemoglobin 8.2 g/dL (13.5-17.5)
--- NOTE | 2020-01-10 05:33 | NUR ---
CERTIFIED LACTATION COUNSELOR SUMMARY PT AAOX4 AND PLEASANT. FINISHED 2ND UNIT OF BLOOD AT START OF SHIFT. HGB 8.2 AT 2200. PT COLOR IMPROVED AND STATES HE DOES FEEL A BIT BETTER. GIVEN TYLENOL X1 FOR CHRONIC PAIN. PT ABLE TO REST MOST OF THE NIGHT AFTER GETTING KLONOPIN AT BEDTIME. VSS, WILL CONTINUE TO MONITOR.
[2020-01-10 05:35] LABS: International Normalized Ratio 2.96; Prothrombin Time Results 29.8 Sec (9.7-11.5)
--- NOTE | 2020-01-10 08:30 | NUR ---
PT PLEASANT A/O PAIN BETTER IN BACK THIS AM. RECENTLY MEDICATED. H/H IMPROVED. SPOKE TO IN [facility]. EXPECTING D/C THIS AM. H/R REG, NO MURMER NOTED VALVE CLICK NOTED. PACER LUCW. PER TELE PACED AT 80., LUNGS CLEAR EXCEPT LIGHT CRACKLES BOTH BASES. PT STATES HAS RT LOW LOBECTOMY. RESP EASY, UNLABORED. ON R.A. BT X4 LAST BM YEST PT PT. VO9IDS URINAL. 1 ASST. BED IN LOW POSITION, CALL LITE IN [facility], CALL APPRP
[2020-01-10] MEDS ORDERED: PANT40 PO (12:00)
== END 2020-01-10 13:32 | disposition home or self-care (01) ==
LOC: ER 14:40 → MEDS 14:41 → ENPENDDIS 01-10 07:56 → MEDS 01-10 13:32
PROVIDERS: Emergency Medicine; Family Medicine; ADMIT Internal Medicine
DX: R06.02 Shortness of breath (principal); C94.6 Myelodysplastic disease, not elsewhere classified; I48.91 Unspecified atrial fibrillation; I10 Essential (primary) hypertension; Z79.01 Long term (current) use of anticoagulants; Z79.899 Other long term (current) drug therapy; Z87.891 Personal history of nicotine dependence
CPT/HCPCS: 36415; 36430; 71045; 80048; 85014; 85018; 85025; 85610; 86850; 86900; 86901; 86923; 93005; 93010; 99285-25; A9270; A9270-GY; J1940; J7030; J7050; P9016

== ENCOUNTER 2020-04-11 00:34 | Day surgery (SDC) | payer MEDICARE ==
[~2020-04-11 00:34] MED LIST changes: +GABAPENTIN600 MG PO; +LOSA25 PO; +METOPROLOL SUCC25 MG PO; +NEURONTIN600 MG PO; +SPIR25 PO; +TORSE20 PO
--- NOTE | 2020-04-11 14:25 | NUR ---
PT TOOK 1000 MG TYLENOL JUST PRIOR TO ARRIVING AT [facility] PER .
== END 2020-04-11 18:02 | disposition home or self-care (01) ==
LOC: ATC 00:34
DX: D46.9 Myelodysplastic syndrome, unspecified (principal); I50.9 Heart failure, unspecified; Z87.891 Personal history of nicotine dependence; Z79.899 Other long term (current) drug therapy
CPT/HCPCS: 86850; 86900; 86901; 86923; A9270; J7030; P9016